=== PATIENT | male | born 1970 | race African-American/Black ===

== ENCOUNTER 2020-06-30 11:45 | Inpatient (IN) | payer BC ==
[~2020-06-30] VITALS: Ht 195.6 cm; Wt 118.5 kg
[2020-06-30 12:28] LABS: BASO # 0.1 x10^3/uL (0.0-0.2); BASO % 1 % (0-3); EOS # 0.1 x10^3/uL (0.0-0.7); EOS % 1 % (0-3); HEMATOCRIT 44.5 % (39.0-53.0); HEMOGLOBIN 14.4 g/dL (13.0-17.5); LYMPH # 1.7 x10^3/uL (1.0-4.8); LYMPH % 24 % (24-48); MEAN CORPUSCULAR HEMOGLOBIN 30 pg (25-35); MEAN CORPUSCULAR HGB CONC 32 g/dL (31-37); MEAN CORPUSCULAR VOLUME 93 fL (79-100); MONO # 0.6 x10^3/uL (0.0-1.1); MONO % 8 % (0-9); NEUT # 4.7 x10^3/uL (1.8-7.7); NEUT % 66 % (31-73); PLATELET COUNT 185 x10^3/uL (140-400); RED CELL DISTRIBUTION WIDTH 14.7 % (11.5-14.5); WHITE BLOOD COUNT 7.2 x10^3/uL (4.0-11.0)
[2020-06-30 12:35] LABS: CALCIUM 8.7 mg/dL (8.5-10.1); CREATININE 1.3 mg/dL (0.7-1.3); GFR 70.7; POTASSIUM 4.1 mmol/L (3.5-5.1)
[2020-06-30 12:41] LABS: ALBUMIN 2.5 g/dL (3.4-5.0); ALBUMIN/GLOBULIN RATIO 0.7 (1.0-1.7); TOTAL BILIRUBIN 1.5 mg/dL (0.2-1.0); TOTAL PROTEIN 5.9 g/dL (6.4-8.2)
[2020-06-30] MEDS ORDERED: IOHEXOL 240 MG/ML 50ML VIAL. PO ONE (13:00)
[2020-06-30] MEDS ORDERED: IOHEXOL 300 MG/ML 100ML VIAL. IV ONE (13:00)
--- NOTE | 2020-06-30 13:19 | ED.ADGEN ---
Past Medical History Past Medical History: Diabetes-Type II Past Surgical History: No Surgical History Smoking Status: Never Smoker Alcohol Use: Occasionally General Adult EDM: Chief Complaint: ABDOMINAL PAIN HPI: HPI: Patient is a 50-year-old male who presents to the emergency room complaining of abdominal discomfort, abdominal distention, difficulty with constipation. Patient states this this is been ongoing for the last couple of months and he tried to see his primary care physician for this but his concerns were not addressed. He states that he feels like his abdomen is hard all the time and he does not know the last time that he has had a normal bowel movement. He has gained weight but has a decreased appetite. He does have bilateral swelling in his legs which he attributes to working on his feet all day. Only history is diabetes which he has been taking his medications for. He denies any chest pa in, shortness of breath, URI symptoms, dysuria, difficulty with urination. He has had some intermittent nausea and has had one episode of vomiting. Review of Systems: Review of Systems: Complete ROS is negative unless otherwise documented in HPI Current Medications: Current Medications Medications (Trade) Dose Ordered Sig/Silverio Start Time Stop Time Status Last Admin Dose Admin Furosemide (Lasix) 40 mg 1X ONCE 06/30/20 15:00 06/30/20 15:01 DC 06/30/20 15:11 40 MG Iohexol (Omnipaque 240 Mg/ml) 30 ml 1X ONCE 06/30/20 13:00 06/30/20 13:03 DC 06/30/20 13:00 30 ML Iohexol (Omnipaque 300 Mg/ml) 75 ml 1X ONCE 06/30/20 13:00 06/30/20 13:03 DC 06/30/20 13:36 75 ML Allergies: Allergies: Allergies Coded Allergies Type Severity Reaction Last Updated Verified No Known Drug Allergies 06/30/20 No Physical Exam: PE: General: Awake, alert, NAD. Well Nourished, well hydrated. Cooperative HEENT: Atraumatic, EOMI, PERRL, airway patent, moist oral mucosa Neck: Supple, trachea midline Respiratory: CTA bilaterally, normal effort, no wheezing/crackles CV: RRR, no murmur, cap refill <2, 2+ pitting edema GI: Soft, distended, nontender MSK: No obvious deformities Skin: Warm, dry, intact Neuro: A&O x3, speech NL, sensory and motor grossly intact, no focal deficits Psych: Normal affect, normal mood, not suicidal or homicidal Current Patient Data: Labs: Laboratory Tests Test 06/30/20 12:15 06/30/20 13:20 White Blood Count 7.2 x10^3/uL (4.0-11.0) Red Blood Count 4.80 x10^6/uL (4.30-5.70) Hemoglobin 14.4 g/dL (13.0-17.5) Hematocrit 44.5 % (39.0-53.0) Mean Corpuscular Volume 93 fL (79-100) Mean Corpuscular Hemoglobin 30 pg (25-35) Mean Corpuscular Hemoglobin Concent 32 g/dL (31-37) Red Cell Distribution Width 14.7 % (11.5-14.5) H Platelet Count 185 x10^3/uL (140-400) Neutrophils (%) (Auto) 66 % (31-73) Lymphocytes (%) (Auto) 24 % (24-48) Monocytes (%) (Auto) 8 % (0-9) Eosinophils (%) (Auto) 1 % (0-3) Basophils (%) (Auto) 1 % (0-3) Neutrophils # (Auto) 4.7 x10^3/uL (1.8-7.7) Lymphocytes # (Auto) 1.7 x10^3/uL (1.0-4.8) Monocytes # (Auto) 0.6 x10^3/uL (0.0-1.1) Eosinophils # (Auto) 0.1 x10^3/uL (0.0-0.7) Basophils # (Auto) 0.1 x10^3/uL (0.0-0.2) Sodium Level 134 mmol/L (136-145) L Potassium Level 4.1 mmol/L (3.5-5.1) Chloride Level 100 mmol/L (98-107) Carbon Dioxide Level 27 mmol/L (21-32) Anion Gap 7 (6-14) Blood Urea Nitrogen 14 mg/dL (8-26) Creatinine 1.3 mg/dL (0.7-1.3) Estimated GFR (Cockcroft-Gault) 70.7 BUN/Creatinine Ratio 11 (6-20) Glucose Level 364 mg/dL (70-99) H Calcium Level 8.7 mg/dL (8.5-10.1) Total Bilirubin 1.5 mg/dL (0.2-1.0) H Aspartate Amino Transferase (AST) 33 U/L (15-37) Alanine Aminotransferase (ALT) 51 U/L (16-63) Alkaline Phosphatase 463 U/L (46-116) H ZK-Ypp-I-Type Natriuretic Peptide 3450 pg/mL (0-124) H Total Protein 5.9 g/dL (6.4-8.2) L Albumin 2.5 g/dL (3.4-5.0) L Albumin/Globulin Ratio 0.7 (1.0-1.7) L Lipase 111 U/L (73-393) Urine Collection Type Unknown Urine Color Mell Urine Clarity Clear Urine pH 6.0 (<5.0-8.0) Urine Specific [place] 1.020 (1.000-1.030) Urine Protein 100 mg/dL (NEG-TRACE) Urine Glucose (UA) >=1000 mg/dL (NEG) Urine Ketones (Stick) Negative mg/dL (NEG) Urine Blood Negative (NEG) Urine Nitrite Negative (NEG) Urine Bilirubin Small (NEG) Urine Urobilinogen Dipstick 1.0 mg/dL (0.2 mg/dL) Urine Leukocyte Esterase Negative (NEG) Urine RBC 0 /HPF (0-2) Urine WBC 20-40 /HPF (0-4) Urine Bacteria Many /HPF (0-FEW) Urine Hyaline Casts Moderate /HPF Urine Mucus Mod /LPF Laboratory Tests 06/30/20 12:15 Laboratory Tests 06/30/20 12:15 Vital Signs: Vital Signs Date Time Temp Pulse Resp B/P (MAP) Pulse Ox O2 Delivery O2 Flow Rate FiO2 06/30/20 14:47 90 113/78 (90) Room Air 06/30/20 13:40 20 98 06/30/20 11:57 98.6 98.6 EKG: EKG: [] Heart Score: Risk Factors: Risk Factors: DM, Current or recent (<one month) smoker, HTN, HLP, family history of CAD, obesity. Risk Scores: Score 0 - 3: 2.5% MACE over next 6 weeks - Discharge Home Score 4 - 6: 20.3% MACE over next 6 weeks - Admit for Clinical Observation Score 7 - 10: 72.7% MACE over next 6 weeks - Early Invasive Strategies Radiology/Procedures: Radiology/Procedures: [] Course & Med Decision Making: Course & Med Decision Making Pertinent Labs and Imaging studies reviewed. (See chart for details) Patient is a 50-year-old male who presents to the emergency room complaining of abdominal distention and discomfort that has been ongoing for last couple months. Patient does appear to have a distended abdomen and some pitting edema on exam. Abdominal lab work was ordered including a CBC, CMP, lipase, UA. CT abdomen pelvis was also ordered to evaluate for any kind of mass or obstruction. CT shows anasarca with pleural effusions and ascites. This is likely due to congestive heart failure. He does also have 2+ pitting edema. Lasix was started and a BNP was ordered which is elevated. Patient will be admitted for cardiology evaluation. Dragon Disclaimer: Dragon Disclaimer: This electronic medical record was generated, in whole or in part, using a voice recognition dictation system. Departure Departure Impression: Primary Impression: Abdominal pain Additional Impressions: New onset of congestive heart failure Anasarca Pleural effusion Disposition: ADMITTED INPT THIS HOSP Condition: STABLE Referrals: UNKNOWN PCP NAME (PCP) Problem Qualifiers DEVORAH CORBIN MD Jun 30, 2020 13:19
[2020-06-30 13:44] LABS: BILIRUBIN,URINE SMALL (NEG); CLARITY,URINE CLEAR; COLOR,URINE AMBER; NITRITE,URINE NEGATIVE (NEG); PROTEIN,URINE 100 mg/dL (NEG-TRACE)
[2020-06-30 13:54] LABS: HYALINE CASTS, URINE MODERATE /HPF
[2020-06-30 13:55] LABS: BACTERIA,URINE MANY /HPF (0-FEW); RBC,URINE 0 /HPF (0-2); WBC,URINE 20-40 /HPF (0-4)
--- NOTE | 2020-06-30 14:10 | RAD ---
EXAM: CT Abdomen and Pelvis with IV contrast INDICATION: Reason: abdominal pain, elderly / Spl. Instructions: INJ 75ML OMNI 300 30 ML OMNI 240 PO / History: TECHNIQUE: Multi-detector row CT images were acquired from the lung bases through the abdomen and pelvis with the use of IV contrast. Sagittal and coronal images were acquired from the transaxial data. All CT scans performed at this facility utilize dose optimization techniques as appropriate to the exam, including the following: Automated exposure control and adjustment of the mA and/or KV according to patient size (this includes techniques or standardized protocols for targeted exams where dose is indication/reason for exam). IV CONTRAST: Administered ORAL CONTRAST: Administered COMPARISON: None FINDINGS: LOWER CHEST: Right greater than left bilateral [id number]-wm-[id number] pleural effusions. Small pericardial effusion measuring up to 1.7 cm in maximum depth at the cardiac base. Borderline enlarged heart LIVER: Mildly enlarged. BILIARY SYSTEM: Layering density in the gallbladder suggesting sludge. Bile ducts are not dilated. 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 The right adrenal gland is mildly enlarged but mildly obscured by soft tissue stranding in the retroperitoneum. KIDNEYS & URETERS: Unremarkable BLADDER: Unremarkable REPRODUCTIVE ORGANS: Unremarkable GASTROINTESTINAL: The stomach, small bowel, and colon are unremarkable. The appendix is normal. MESENTERY/PERITONEUM/RETROPERITONEUM: Moderate ascites. No free air. Mild mesenteric and extraperitoneal soft tissue stranding. VASCULAR: Normal caliber and enhancement to the abdominal aorta and its major branch vessels. LYMPH NODES: No adenopathy OSSEOUS & SOFT TISSUES: Mild degenerative change of the lumbosacral junction. No acute or aggressive appearing osseous lesions. Generalized body wall edema. IMPRESSION: Findings suggesting heart failure with anasarca, ascites and pleural effusions. Otherwise no acute bowel pathology shown. Electronically signed by: Sunshine Self MD (06/30/2020 2:07 PM) [facility] [place]
[2020-06-30] MEDS ORDERED: FUROSEMIDE 40 MG/4 ML VIAL. IVP ONE (15:00)
[2020-06-30 15:55] VITALS: BP 140/93
--- NOTE | 2020-06-30 16:44 | PDOC1 ---
History and Physical Date of Admission Date of Admission DATE: 06/30/20 TIME: 16:44 Identification/Chief Complaint Chief Complaint seen in er with new onset chf, has noted more dyspnea at work x several day, has been eating high sodium foods 50-year-old male who presents to the emergency room complaining of abdominal discomfort, abdominal distention, difficulty with constipation. Patient states this this is been ongoing for the last couple of months and he tried to see his primary care physician for this but his concerns were not addressed. He states that he feels like his abdomen is hard all the time and he does not know the last time that he has had a normal bowel movement. He has gained weight but has a decreased appetite. He does have bilateral swelling in his legs which he attributes to working on his feet all day. Only history is diabetes which he has been taking his medications for. He denies any chest pain, shortness of breath, URI symptoms, dysuria, difficulty with urination. He has had some intermittent nausea and has had one episode of vomiting. 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 [employer], [place] Past Medical History Past Medical History Past Medical History Past Medical History: Diabetes-Type II Past Surgical History: No Surgical History Smoking Status: Never Smoker Alcohol Use: Occasionally Family History Family History: Alcohol Abuse, Hypertension Social History Smoke: No ALCOHOL: occassional (remote heavy use in college) Drugs: None Current Problem List Problem List Problems Medical Problems: (1) Abdominal pain Status: Acute (2) Anasarca Status: Acute (3) New onset of congestive heart failure Status: Acute (4) Pleural effusion Status: Acute Current Medications Current Medications Current Medications Iohexol (Omnipaque 240 Mg/ml) 30 ml 1X ONCE PO Last administered on 06/30/20at 13:00; Start 06/30/20 at 13:00; Stop 06/30/20 at 13:03; Status DC Iohexol (Omnipaque 300 Mg/ml) 75 ml 1X ONCE IV Last administered on 06/30/20at 13:36; Start 06/30/20 at 13:00; Stop 06/30/20 at 13:03; Status DC Furosemide (Lasix) 40 mg 1X ONCE IVP Last administered on 06/30/20at 15:11; Start 06/30/20 at 15:00; Stop 06/30/20 at 15:01; Status DC Allergies Allergies: Coded Allergies: No Known Drug Allergies (Unverified , 06/30/20) ROS General: YES: Fatigue PSYCHOLOGICAL ROS: No: Anxiety, Behavioral Disorder, Concentration difficultie, Decreased libido, Depression, Disorientation, Hallucinations, Hostility, Irritablity, Memory difficulties, Mood Swings, Obsessive thoughts, Physical abuse, Sexual abuse, Sleep disturbances, Suicidal ideation, Other Eyes: No Blurry vision, No Decreased vision, No Double vision, No Dry eyes, No Excessive tearing, No Eye Pain, No Itchy Eyes, No Loss of vision, No Photophobia, No Scotomata, No Uses contacts, No Uses glasses, No Other HEENT: No: Heacaches, Visual Changes, Hearing change, Nasal congestion, Nasal discharge, Oral lesions, Sinus pain, Sore Throat, Epistaxis, Sneezing, Snoring, Tinnitus, Vertigo, Vocal changes, Other ALLERGY AND IMMUNOLOGY: No: Hives, Insect Bite Sensitivity, Itchy/Watery Eyes, Nasal Congestion, Post Nasal Drip, Seasonal Allergies, Other Hematological and Lymphatic: No: Bleeding Problems, Blood Clots, Blood Transfusions, Brusing, Night Sweats, Pallor, Swollen Lymph Nodes, Other Respiratory: YES: Orthopnea, Shortness of breath, SOB with excertion; No: Cough, Hemoptysis, Pleuritic Pain, Sputum Changes, Stridor, Tachypnea, Wheezing, Other Cardiovascular: yes Edema; No Chest Pain, No Palpitations, No Orthopnea, No Paroxysmal Noc. Dyspnea, No Lt Headedness, No Other Gastrointestinal: No Nausea, No Vomiting, No Abdominal Pain, No Diarrhea, No Constipation, No Melena, No Hematochezia, No Other Genitourinary: No Dysuria, No Frequency, No Incontinence, No Hematuria, No Retention, No Discharge, No Urgency, No Pain, No Flank Pain, No Other, No , No , No , No , No , No , No Musculoskeletal: Yes Joint Stiffness; No Gait Disturbance, No Joint Pain, No Joint Swelling, No Muscle Pain, No Muscular Weakness, No Pain In:, No Swelling In:, No Other Neurological: No Behavorial Changes, No Bowel/Bladder ControlChng, No Confusion, No Dizziness, No Gait Disturbance, No Headaches, No Impaired Coord/balance, No Memory Loss, No Numbness/Tingling, No Seizures, No Speech Problems, No Tremors, No Visual Changes, No Weakness, No Other Skin: No Dry Skin, No Eczema, No Hair Changes, No Lumps, No Mole Changes, No Mo ttling, No Nail Changes, No Pruritus, No Rash, No Skin Lesion Changes, No Other, No Acne Physical Exam General: Alert, Oriented X3, Cooperative, No acute distress HEENT: Atraumatic, PERRLA Lungs: Clear to auscultation Heart: RRR, no thrills, no rubs, jugular vein distention Breasts: Not examined Abdomen: Normal bowel sounds, Soft Rectal Exam: not examined Extremities: No cyanosis, Other (edema) Neuro: Normal speech, Cranial nerves 3-12 NL Psych/Mental Status: Mental status NL, Mood NL Vitals Vitals Vital Signs Date Time Temp Pulse Resp B/P (MAP) Pulse Ox O2 Delivery O2 Flow Rate FiO2 06/30/20 15:55 97.9 95 18 140/93 (109) 96 Room Air 97.9 Labs Labs Laboratory Tests Test 06/30/20 12:15 06/30/20 13:20 White Blood Count 7.2 x10^3/uL (4.0-11.0) Red Blood Count 4.80 x10^6/uL (4.30-5.70) Hemoglobin 14.4 g/dL (13.0-17.5) Hematocrit 44.5 % (39.0-53.0) Mean Corpuscular Volume 93 fL (79-100) Mean Corpuscular Hemoglobin 30 pg (25-35) Mean Corpuscular Hemoglobin Concent 32 g/dL (31-37) Red Cell Distribution Width 14.7 % (11.5-14.5) Platelet Count 185 x10^3/uL (140-400) Neutrophils (%) (Auto) 66 % (31-73) Lymphocytes (%) (Auto) 24 % (24-48) Monocytes (%) (Auto) 8 % (0-9) Eosinophils (%) (Auto) 1 % (0-3) Basophils (%) (Auto) 1 % (0-3) Neutrophils # (Auto) 4.7 x10^3/uL (1.8-7.7) Lymphocytes # (Auto) 1.7 x10^3/uL (1.0-4.8) Monocytes # (Auto) 0.6 x10^3/uL (0.0-1.1) Eosinophils # (Auto) 0.1 x10^3/uL (0.0-0.7) Basophils # (Auto) 0.1 x10^3/uL (0.0-0.2) Sodium Level 134 mmol/L (136-145) Potassium Level 4.1 mmol/L (3.5-5.1) Chloride Level 100 mmol/L (98-107) Carbon Dioxide Level 27 mmol/L (21-32) Anion Gap 7 (6-14) Blood Urea Nitrogen 14 mg/dL (8-26) Creatinine 1.3 mg/dL (0.7-1.3) Estimated GFR (Cockcroft-Gault) 70.7 BUN/Creatinine Ratio 11 (6-20) Glucose Level 364 mg/dL (70-99) Calcium Level 8.7 mg/dL (8.5-10.1) Total Bilirubin 1.5 mg/dL (0.2-1.0) Aspartate Amino Transf (AST/SGOT) 33 U/L (15-37) Alanine Aminotransferase (ALT/SGPT) 51 U/L (16-63) Alkaline Phosphatase 463 U/L (46-116) QS-Qqj-N-Type Natriuretic Peptide 3450 pg/mL (0-124) Total Protein 5.9 g/dL (6.4-8.2) Albumin 2.5 g/dL (3.4-5.0) Albumin/Globulin Ratio 0.7 (1.0-1.7) Lipase 111 U/L (73-393) Urine Collection Type Unknown Urine Color Mell Urine Clarity Clear Urine pH 6.0 (<5.0-8.0) Urine Specific [place] 1.020 (1.000-1.030) Urine Protein 100 mg/dL (NEG-TRACE) Urine Glucose (UA) >=1000 mg/dL (NEG) Urine Ketones (Stick) Negative mg/dL (NEG) Urine Blood Negative (NEG) Urine Nitrite Negative (NEG) Urine Bilirubin Small (NEG) Urine Urobilinogen Dipstick 1.0 mg/dL (0.2 mg/dL) Urine Leukocyte Esterase Negative (NEG) Urine RBC 0 /HPF (0-2) Urine WBC 20-40 /HPF (0-4) Urine Bacteria Many /HPF (0-FEW) Urine Hyaline Casts Moderate /HPF Urine Mucus Mod /LPF Laboratory Tests Test 06/30/20 12:15 06/30/20 13:20 White Blood Count 7.2 x10^3/uL (4.0-11.0) Red Blood Count 4.80 x10^6/uL (4.30-5.70) Hemoglobin 14.4 g/dL (13.0-17.5) Hematocrit 44.5 % (39.0-53.0) Mean Corpuscular Volume 93 fL (79-100) Mean Corpuscular Hemoglobin 30 pg (25-35) Mean Corpuscular Hemoglobin Concent 32 g/dL (31-37) Red Cell Distribution Width 14.7 % (11.5-14.5) Platelet Count 185 x10^3/uL (140-400) Neutrophils (%) (Auto) 66 % (31-73) Lymphocytes (%) (Auto) 24 % (24-48) Monocytes (%) (Auto) 8 % (0-9) Eosinophils (%) (Auto) 1 % (0-3) Basophils (%) (Auto) 1 % (0-3) Neutrophils # (Auto) 4.7 x10^3/uL (1.8-7.7) Lymphocytes # (Auto) 1.7 x10^3/uL (1.0-4.8) Monocytes # (Auto) 0.6 x10^3/uL (0.0-1.1) Eosinophils # (Auto) 0.1 x10^3/uL (0.0-0.7) Basophils # (Auto) 0.1 x10^3/uL (0.0-0.2) Sodium Level 134 mmol/L (136-145) Potassium Level 4.1 mmol/L (3.5-5.1) Chloride Level 100 mmol/L (98-107) Carbon Dioxide Level 27 mmol/L (21-32) Anion Gap 7 (6-14) Blood Urea Nitrogen 14 mg/dL (8-26) Creatinine 1.3 mg/dL (0.7-1.3) Estimated GFR (Cockcroft-Gault) 70.7 BUN/Creatinine Ratio 11 (6-20) Glucose Level 364 mg/dL (70-99) Calcium Level 8.7 mg/dL (8.5-10.1) Total Bilirubin 1.5 mg/dL (0.2-1.0) Aspartate Amino Transf (AST/SGOT) 33 U/L (15-37) Alanine Aminotransferase (ALT/SGPT) 51 U/L (16-63) Alkaline Phosphatase 463 U/L (46-116) OL-Bmi-H-Type Natriuretic Peptide 3450 pg/mL (0-124) Total Protein 5.9 g/dL (6.4-8.2) Albumin 2.5 g/dL (3.4-5.0) Albumin/Globulin Ratio 0.7 (1.0-1.7) Lipase 111 U/L (73-393) Urine Collection Type Unknown Urine Color Mell Urine Clarity Clear Urine pH 6.0 (<5.0-8.0) Urine Specific [place] 1.020 (1.000-1.030) Urine Protein 100 mg/dL (NEG-TRACE) Urine Glucose (UA) >=1000 mg/dL (NEG) Urine Ketones (Stick) Negative mg/dL (NEG) Urine Blood Negative (NEG) Urine Nitrite Negative (NEG) Urine Bilirubin Small (NEG) Urine Urobilinogen Dipstick 1.0 mg/dL (0.2 mg/dL) Urine Leukocyte Esterase Negative (NEG) Urine RBC 0 /HPF (0-2) Urine WBC 20-40 /HPF (0-4) Urine Bacteria Many /HPF (0-FEW) Urine Hyaline Casts Moderate /HPF Urine Mucus Mod /LPF Images Images EXAM: CT Abdomen and Pelvis with IV contrast INDICATION: Reason: abdominal pain, elderly / Spl. Instructions: INJ 75ML OMNI 300 30 ML OMNI 240 PO / History: TECHNIQUE: Multi-detector row CT images were acquired from the lung bases through the abdomen and pelvis with the use of IV contrast. Sagittal and coronal images were acquired from the transaxial data. All CT scans performed at this facility utilize dose optimization techniques as appropriate to the exam, including the following: Automated exposure control and adjustment of the mA and/or KV according to patient size (this includes techniques or standardized protocols for targeted exams where dose is indication/reason for exam). IV CONTRAST: Administered ORAL CONTRAST: Administered COMPARISON: None FINDINGS: LOWER CHEST: Right greater than left bilateral [id number] pleural effusions. Small pericardial effusion measuring up to 1.7 cm in maximum depth at the cardiac base. Borderline enlarged heart LIVER: Mildly enlarged. BILIARY SYSTEM: Layering density in the gallbladder suggesting sludge. Bile ducts are not dilated. 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 The right adrenal gland is mildly enlarged but mildly obscured by soft tissue stranding in the retroperitoneum. KIDNEYS & URETERS: Unremarkable BLADDER: Unremarkable REPRODUCTIVE ORGANS: Unremarkable GASTROINTESTINAL: The stomach, small bowel, and colon are unremarkable. The appendix is normal. MESENTERY/PERITONEUM/RETROPERITONEUM: Moderate ascites. No free air. Mild mesenteric and extraperitoneal soft tissue stranding. VASCULAR: Normal caliber and enhancement to the abdominal aorta and its major branch vessels. LYMPH NODES: No adenopathy OSSEOUS & SOFT TISSUES: Mild degenerative change of the lumbosacral junction. No acute or aggressive appearing osseous lesions. Generalized body wall edema. IMPRESSION: Findings suggesting heart failure with anasarca, ascites and pleural effusions. Otherwise no acute bowel pathology shown. Electronically signed by: Ghislaine Self MD (06/30/2020 2:07 PM) [facility] [place] S[place] BY: GHISLAINE SELF MD DATE: 06/30/20 1407 VTE Prophylaxis Ordered VTE Prophylaxis Devices: No VTE Pharmacological Prophylaxi: Yes Assessment/Plan Assessment/Plan IMPRESSION: ACUTE Congestive heart failure anasarca, ascites DIABETES pleural effusions Right greater than left bilateral [id number] pleural effusions. Small pericardial effusion measuring up to 1.7 cm in maximum depth at the cardiac base. ELEVATED TSH Minimum troponin i elevation, suspect acute myocardial strain type 2 ischemia plan admit cvc bed iv lasix BID 40 MG cardiology consult TSH ECHO troponin i, serial urine drug screen accurate I/O'S DVT PROPHYLAXIS accuchecks A1C D/W ER DR 76 min pt exam, chart review, > 50% of time spent with exam, chart review, pt care coordination Justifications for Admission Other Justification SAUMYA BLANCHARD MD Jun 30, 2020 16:44
[2020-06-30] MEDS ORDERED: ONDANSETRON PF 4 MG/2 ML VIAL. IV PRN (17:00)
[2020-06-30] MEDS ORDERED: ALBUTEROL SULFATE 2.5 MG/3 ML NEBU. NEB PRN (17:00)
[2020-06-30] MEDS ORDERED: SODIUM PHOSPHATES 19/7GM 133 ML ENEMA. PR PRN (17:00)
[2020-06-30] MEDS ORDERED: ACETAMINOPHEN 325 MG TABLET. PO PRN (17:00)
[2020-06-30] MEDS ORDERED: guaiFENesin ORAL 200 MG/10 ML LIQUID. PO PRN (17:00)
[2020-06-30] MEDS ORDERED: DOCUSATE SODIUM 100 MG CAPSULE. PO PRN (17:00)
[2020-06-30] MEDS ORDERED: 0.9 % SODIUM CHLORIDE 10 ML DISP.SYRIN. IV PRN (17:00)
[2020-06-30 17:21] LABS: FREE T4 1.3 ng/dL (0.76-1.46); THYROID STIM HORMONE (TSH) 4.837 uIU/mL (0.358-3.74)
[2020-06-30] MEDS ORDERED: DEXTROSE 50% 25 GM / 50ML DISP.SYRIN. IV PRN ×2 (17:30→22:15)
[2020-06-30] MEDS: INSULIN LISPRO 300 UNITS/3 ML VIAL. SQ SCH (17:36)
[2020-06-30] MEDS: ENOXAPARIN 40 MG/0.4 ML SYRINGE. SQ SCH (17:38)
[2020-06-30 19:53] VITALS: BP 130/88
[2020-06-30 23:06] VITALS: BP 117/84
[2020-07-01] VITALS (17 sets, daily range): BP systolic 110–146; BP diastolic 79–101
--- NOTE | 2020-07-01 00:09 | RAD ---
EXAM: CHEST 2 VIEWS. HISTORY: Congestive heart failure. COMPARISON: 09/11/2005. FINDINGS: Frontal and lateral views of the chest are obtained. There are small bilateral pleural effusions. Mild perihilar opacities are consistent with mild pulmonary edema. There is no pneumothorax or pleural effusion. The heart is mildly enlarged. IMPRESSION: 1. Mild pulmonary edema. Small bilateral pleural effusions. Mild cardiomegaly. Electronically signed by: Selena Xiong MD (07/01/2020 12:06 AM) [facility], [place]
[2020-07-01 04:43] LABS: BASO # 0.1 x10^3/uL (0.0-0.2); BASO % 1 % (0-3); EOS # 0.1 x10^3/uL (0.0-0.7); EOS % 2 % (0-3); HEMATOCRIT 43.2 % (39.0-53.0); HEMOGLOBIN 14.2 g/dL (13.0-17.5); LYMPH # 1.9 x10^3/uL (1.0-4.8); LYMPH % 26 % (24-48); MEAN CORPUSCULAR HEMOGLOBIN 30 pg (25-35); MEAN CORPUSCULAR HGB CONC 33 g/dL (31-37); MEAN CORPUSCULAR VOLUME 92 fL (79-100); MONO # 0.6 x10^3/uL (0.0-1.1); MONO % 8 % (0-9); NEUT # 4.8 x10^3/uL (1.8-7.7); NEUT % 64 % (31-73); PLATELET COUNT 173 x10^3/uL (140-400); RED BLOOD COUNT 4.68 x10^6/uL (4.30-5.70); RED CELL DISTRIBUTION WIDTH 14.1 % (11.5-14.5); WHITE BLOOD COUNT 7.5 x10^3/uL (4.0-11.0)
[2020-07-01 05:24] LABS: CALCIUM 8.2 mg/dL (8.5-10.1); CREATININE 1.3 mg/dL (0.7-1.3); GFR 70.7; POTASSIUM 4.4 mmol/L (3.5-5.1)
[2020-07-01] MEDS ORDERED: INSULIN LISPRO 300 UNITS/3 ML VIAL. SQ SCH ×2 (08:00)
--- NOTE | 2020-07-01 08:55 | EKG ---
[facility] [address] [place] [address] Test Date: 2020-07-01 Test Time: 08:51:43 Pat Name: EVONNE DIAZ Department: Room: 211 1 Gender: M [employer]: PAM : 1970 Requested By: MARY PRECIADO Order Number: [id number] Reading MD: Measurements Intervals [place] Rate: 91 P: 47 MA: 182 QRS: 129 QRSD: 88 T: 19 QT: 376 QTc: 464 Interpretive Statements SINUS RHYTHM LOW LIMB LEAD VOLTAGE QRS(T) CONTOUR ABNORMALITY CONSISTENT WITH HIGH LATERAL INFARCT AGE UNDETERMINED ABNORMAL ECG RI6.02 No previous ECG available for comparison
[2020-07-01] MEDS: FUROSEMIDE 40 MG/4 ML VIAL. IVP SCH ×2 (10:18→15:25)
[2020-07-01] MEDS: INSULIN LISPRO 300 UNITS/3 ML VIAL. SQ SCH ×3 (10:29→17:53)
--- NOTE | 2020-07-01 10:31 | PDOC ---
[employer] PROGRESS NOTE Date of Service DOS: DATE: 07/01/20 TIME: 10:26 Chief Complaint Chief Complaint New onset CHF Dyspnea Diabetes Type 2 Abdominal pain Ansasarca Ascites pleural effusion History of Present Illness History of Present Illness seen in er with new onset chf, has noted more dyspnea at work x several day, has been eating high sodium foods 50-year-old male who presents to the emergency room complaining of abdominal discomfort, abdominal distention, difficulty with constipation. Patient states this this is been ongoing for the last couple of months and he tried to see his primary care physician for this but his concerns were not addressed. He states that he feels like his abdomen is hard all the time and he does not know the last time that he has had a normal bowel movement. He has gained weight but has a decreased appetite. He does have bilateral swelling in his legs which he attributes to working on his feet all day. Only history is diabetes which he has been taking his medications for. He denies any chest pain, shortness of breath, URI symptoms, dysuria, difficulty with urination. He has had some intermittent nausea and has had one episode of vomiting. Works for [employer] 07/01 Pt seen and examined. DW RN and DW case management. Pt denies SOA and denies chest pain. Abdominal discomfort and pain is no longer present. Vitals/I&O Vitals/I&O: Vital Signs Date Time Temp Pulse Resp B/P (MAP) Pulse Ox O2 Delivery O2 Flow Rate FiO2 07/01/20 07:32 97.9 87 16 146/88 (107) 99 Room Air 97.9 I & O 06/30/20 06/30/20 07/01/20 15:00 23:00 07:00 Intake Total 720 ml Output Total 100 ml 1430 ml 1200 ml Balance -100 ml -710 ml -1200 ml Physical Exam General: Alert, Oriented X3, Cooperative, No acute distress Abdomen: Normal bowel sounds, Soft Extremities: No cyanosis, Other (edema) Labs Labs: Laboratory Tests Test 06/30/20 12:15 06/30/20 13:20 06/30/20 17:10 06/30/20 20:29 White Blood Count 7.2 x10^3/uL (4.0-11.0) Red Blood Count 4.80 x10^6/uL (4.30-5.70) Hemoglobin 14.4 g/dL (13.0-17.5) Hematocrit 44.5 % (39.0-53.0) Mean Corpuscular Volume 93 fL (79-100) Mean Corpuscular Hemoglobin 30 pg (25-35) Mean Corpuscular Hemoglobin Concent 32 g/dL (31-37) Red Cell Distribution Width 14.7 % (11.5-14.5) Platelet Count 185 x10^3/uL (140-400) Neutrophils (%) (Auto) 66 % (31-73) Lymphocytes (%) (Auto) 24 % (24-48) Monocytes (%) (Auto) 8 % (0-9) Eosinophils (%) (Auto) 1 % (0-3) Basophils (%) (Auto) 1 % (0-3) Neutrophils # (Auto) 4.7 x10^3/uL (1.8-7.7) Lymphocytes # (Auto) 1.7 x10^3/uL (1.0-4.8) Monocytes # (Auto) 0.6 x10^3/uL (0.0-1.1) Eosinophils # (Auto) 0.1 x10^3/uL (0.0-0.7) Basophils # (Auto) 0.1 x10^3/uL (0.0-0.2) Sodium Level 134 mmol/L (136-145) Potassium Level 4.1 mmol/L (3.5-5.1) Chloride Level 100 mmol/L (98-107) Carbon Dioxide Level 27 mmol/L (21-32) Anion Gap 7 (6-14) Blood Urea Nitrogen 14 mg/dL (8-26) Creatinine 1.3 mg/dL (0.7-1.3) Estimated GFR (Cockcroft-Gault) 70.7 BUN/Creatinine Ratio 11 (6-20) Glucose Level 364 mg/dL (70-99) Calcium Level 8.7 mg/dL (8.5-10.1) Total Bilirubin 1.5 mg/dL (0.2-1.0) Aspartate Amino Transf (AST/SGOT) 33 U/L (15-37) Alanine Aminotransferase (ALT/SGPT) 51 U/L (16-63) Alkaline Phosphatase 463 U/L (46-116) Troponin I Quantitative 0.085 ng/mL (0.000-0.055) YK-Eks-U-Type Natriuretic Peptide 3450 pg/mL (0-124) Total Protein 5.9 g/dL (6.4-8.2) Albumin 2.5 g/dL (3.4-5.0) Albumin/Globulin Ratio 0.7 (1.0-1.7) Lipase 111 U/L (73-393) Thyroid Stimulating Hormone (TSH) 4.837 uIU/mL (0.358-3.74) Free Thyroxine 1.30 ng/dL (0.76-1.46) Urine Collection Type Unknown Urine Color Mell Urine Clarity Clear Urine pH 6.0 (<5.0-8.0) Urine Specific [place] 1.020 (1.000-1.030) Urine Protein 100 mg/dL (NEG-TRACE) Urine Glucose (UA) >=1000 mg/dL (NEG) Urine Ketones (Stick) Negative mg/dL (NEG) Urine Blood Negative (NEG) Urine Nitrite Negative (NEG) Urine Bilirubin Small (NEG) Urine Urobilinogen Dipstick 1.0 mg/dL (0.2 mg/dL) Urine Leukocyte Esterase Negative (NEG) Urine RBC 0 /HPF (0-2) Urine WBC 20-40 /HPF (0-4) Urine Bacteria Many /HPF (0-FEW) Urine Hyaline Casts Moderate /HPF Urine Mucus Mod /LPF Glucose (Fingerstick) 372 mg/dL (70-99) 194 mg/dL (70-99) Test 07/01/20 04:00 07/01/20 07:21 White Blood Count 7.5 x10^3/uL (4.0-11.0) Red Blood Count 4.68 x10^6/uL (4.30-5.70) Hemoglobin 14.2 g/dL (13.0-17.5) Hematocrit 43.2 % (39.0-53.0) Mean Corpuscular Volume 92 fL (79-100) Mean Corpuscular Hemoglobin 30 pg (25-35) Mean Corpuscular Hemoglobin Concent 33 g/dL (31-37) Red Cell Distribution Width 14.1 % (11.5-14.5) Platelet Count 173 x10^3/uL (140-400) Neutrophils (%) (Auto) 64 % (31-73) Lymphocytes (%) (Auto) 26 % (24-48) Monocytes (%) (Auto) 8 % (0-9) Eosinophils (%) (Auto) 2 % (0-3) Basophils (%) (Auto) 1 % (0-3) Neutrophils # (Auto) 4.8 x10^3/uL (1.8-7.7) Lymphocytes # (Auto) 1.9 x10^3/uL (1.0-4.8) Monocytes # (Auto) 0.6 x10^3/uL (0.0-1.1) Eosinophils # (Auto) 0.1 x10^3/uL (0.0-0.7) Basophils # (Auto) 0.1 x10^3/uL (0.0-0.2) Sodium Level 136 mmol/L (136-145) Potassium Level 4.4 mmol/L (3.5-5.1) Chloride Level 102 mmol/L (98-107) Carbon Dioxide Level 24 mmol/L (21-32) Anion Gap 10 (6-14) Blood Urea Nitrogen 18 mg/dL (8-26) Creatinine 1.3 mg/dL (0.7-1.3) Estimated GFR (Cockcroft-Gault) 70.7 Glucose Level 239 mg/dL (70-99) Calcium Level 8.2 mg/dL (8.5-10.1) Troponin I Quantitative 0.076 ng/mL (0.000-0.055) Triglycerides Level 73 mg/dL (0-150) Cholesterol Level 112 mg/dL (0-200) LDL Cholesterol, Calculated 60 mg/dL (0-100) VLDL Cholesterol, Calculated 15 mg/dL (0-40) Non-HDL Cholesterol Calculated 75 mg/dL (0-129) HDL Cholesterol 37 mg/dL (40-60) Cholesterol/HDL Ratio 3.0 Glucose (Fingerstick) 255 mg/dL (70-99) Review of Systems Review of Systems: No headaches. No leg pain b/l. No abdominal pain. Assessment and Plan Assessmemt and Plan Problems Medical Problems: (1) Abdominal pain Status: Acute (2) Anasarca Status: Acute (3) New onset of congestive heart failure Status: Acute (4) Pleural effusion Status: Acute New onset CHF Dyspnea Diabetes Type 2 Abdominal pain Ansasarca Ascites pleural effusion Plan: Cardiac Monitoring Pt/OT Continue Home meds Full Code Discharge disposition pending Pt needs to be seen by cardiology before discharge Comment Review of Relevant I have reviewed the following items tory (where applicable) has been applied. Medications: Current Medications Medications (Trade) Dose Ordered Sig/Silverio Route PRN Reason Start Time Stop Time Status Last Admin Dose Admin Iohexol (Omnipaque 240 Mg/ml) 30 ml 1X ONCE PO 06/30/20 13:00 06/30/20 13:03 DC 06/30/20 13:00 Iohexol (Omnipaque 300 Mg/ml) 75 ml 1X ONCE IV 06/30/20 13:00 06/30/20 13:03 DC 06/30/20 13:36 Furosemide (Lasix) 40 mg 1X ONCE IVP 06/30/20 15:00 06/30/20 15:01 DC 06/30/20 15:11 Enoxaparin Sodium (Lovenox 40mg Syringe) 40 mg Q24H SQ 06/30/20 18:00 06/30/20 17:38 Insulin Human Lispro (HumaLOG) 0-7 UNITS TIDWMEALS SQ 06/30/20 17:30 06/30/20 17:36 Justifications for Admission Other Justification CAMILLA CLAY III DO Jul 01, 2020 10:31
--- NOTE | 2020-07-01 11:50 | PDOC2 ---
MARY PRECIADO [employer] TRAINING TEACH[employer] 07/01/20 1150: CARDIAC CONSULT DATE OF CONSULT Date of Consult DATE: 07/01/20 TIME: 11:17 REASON FOR CONSULT Reason for Consult: New onset CHF REFERRING PHYSICIAN Referring Physician: Solomon SOURCE Source: Chart review, Patient HISTORY OF PRESENT ILLNESS HISTORY OF PRESENT ILLNESS This is a pleasant 50 yo male admitted for complains of body swelling and abdominal pain. Reports no significant SOA or chest pain but positive for orthopnea. Does have tightening around his waist and bloated. Denies any fatigue nausea or vomiting. and no family hx of heart disease. Reports that he has been getting more swollen in the last 2 months. OCcasionally he has palpitations., He has been diabetic in the last 6 yrs and only has been taking metformin and his BG runs in the 200s when he checks it. He went ot his PCP yesterday and told him to come to the hospital. He was started on HCTZ due to his swelling. No recent falls or injury. No hx of CAD, VTE or arrhythmias. PAST MEDICAL HISTORY Past Medical History DM2 PAST SURGICAL HISTORY Past Surgical History: No pertinent history FAMILY HISTORY Family History noncontributory SOCIAL HISTORY Smoke: No ALCOHOL: none Drugs: None Lives: with Family CURRENT MEDICATIONS CURRENT MEDICATIONS Current Medications Medications (Trade) Dose Ordered Sig/Silverio Route PRN Reason Start Time Stop Time Status Last Admin Dose Admin Iohexol (Omnipaque 240 Mg/ml) 30 ml 1X ONCE PO 06/30/20 13:00 06/30/20 13:03 DC 06/30/20 13:00 Iohexol (Omnipaque 300 Mg/ml) 75 ml 1X ONCE IV 06/30/20 13:00 06/30/20 13:03 DC 06/30/20 13:36 Furosemide (Lasix) 40 mg 1X ONCE IVP 06/30/20 15:00 06/30/20 15:01 DC 06/30/20 15:11 Enoxaparin Sodium (Lovenox 40mg Syringe) 40 mg Q24H SQ 06/30/20 18:00 06/30/20 17:38 Insulin Human Lispro (HumaLOG) 0-7 UNITS TIDWMEALS SQ 06/30/20 17:30 07/01/20 10:29 Furosemide (Lasix) 40 mg BID92 IVP 07/01/20 09:00 07/01/20 10:18 ALLERGIES ALLERGIES: Coded Allergies: No Known Drug Allergies (Unverified , 06/30/20) ROS Review of System 14 point ROS evaluated with pertinent positives noted per HPI PHYSICAL EXAM General: Alert, Oriented X3, Cooperative, No acute distress HEENT: Atraumatic, Mucous membr. moist/pink Lungs: Other (basilra crackles) Heart: Regular rate (SR), Other (distant heart sounds) Extremities: No cyanosis, Other (1-2+ bilateral LE pitting edema) Skin: No significant lesion Neuro: Normal speech, Sensation intact Psych/Mental Status: Mental status NL, Mood NL MUSCULOSKELETAL: Osteoarthritic changes both hands VITALS/I&O VITALS/I&O: Vital Signs Date Time Temp Pulse Resp B/P (MAP) Pulse Ox O2 Delivery O2 Flow Rate FiO2 07/01/20 10:43 98.0 92 16 142/91 (108) 96 Room Air 98.0 I & O 06/30/20 06/30/20 07/01/20 15:00 23:00 07:00 Intake Total 720 ml Output Total 100 ml 1430 ml 1200 ml Balance -100 ml -710 ml -1200 ml LABS Lab: Laboratory Tests Test 06/30/20 12:15 06/30/20 13:20 06/30/20 17:10 06/30/20 20:29 White Blood Count 7.2 x10^3/uL (4.0-11.0) Red Blood Count 4.80 x10^6/uL (4.30-5.70) Hemoglobin 14.4 g/dL (13.0-17.5) Hematocrit 44.5 % (39.0-53.0) Mean Corpuscular Volume 93 fL (79-100) Mean Corpuscular Hemoglobin 30 pg (25-35) Mean Corpuscular Hemoglobin Concent 32 g/dL (31-37) Red Cell Distribution Width 14.7 % (11.5-14.5) H Platelet Count 185 x10^3/uL (140-400) Neutrophils (%) (Auto) 66 % (31-73) Lymphocytes (%) (Auto) 24 % (24-48) Monocytes (%) (Auto) 8 % (0-9) Eosinophils (%) (Auto) 1 % (0-3) Basophils (%) (Auto) 1 % (0-3) Neutrophils # (Auto) 4.7 x10^3/uL (1.8-7.7) Lymphocytes # (Auto) 1.7 x10^3/uL (1.0-4.8) Monocytes # (Auto) 0.6 x10^3/uL (0.0-1.1) Eosinophils # (Auto) 0.1 x10^3/uL (0.0-0.7) Basophils # (Auto) 0.1 x10^3/uL (0.0-0.2) Sodium Level 134 mmol/L (136-145) L Potassium Level 4.1 mmol/L (3.5-5.1) Chloride Level 100 mmol/L (98-107) Carbon Dioxide Level 27 mmol/L (21-32) Anion Gap 7 (6-14) Blood Urea Nitrogen 14 mg/dL (8-26) Creatinine 1.3 mg/dL (0.7-1.3) Estimated GFR (Cockcroft-Gault) 70.7 BUN/Creatinine Ratio 11 (6-20) Glucose Level 364 mg/dL (70-99) H Calcium Level 8.7 mg/dL (8.5-10.1) Total Bilirubin 1.5 mg/dL (0.2-1.0) H Aspartate Amino Transferase (AST) 33 U/L (15-37) Alanine Aminotransferase (ALT) 51 U/L (16-63) Alkaline Phosphatase 463 U/L (46-116) H Troponin I Quantitative 0.085 ng/mL (0.000-0.055) UV-Oav-B-Type Natriuretic Peptide 3450 pg/mL (0-124) H Total Protein 5.9 g/dL (6.4-8.2) L Albumin 2.5 g/dL (3.4-5.0) L Albumin/Globulin Ratio 0.7 (1.0-1.7) L Lipase 111 U/L (73-393) Thyroid Stimulating Hormone (TSH) 4.837 uIU/mL (0.358-3.74) H Free Thyroxine 1.30 ng/dL (0.76-1.46) Urine Collection Type Unknown Urine Color Mell Urine Clarity Clear Urine pH 6.0 (<5.0-8.0) Urine Specific [place] 1.020 (1.000-1.030) Urine Protein 100 mg/dL (NEG-TRACE) Urine Glucose (UA) >=1000 mg/dL (NEG) Urine Ketones (Stick) Negative mg/dL (NEG) Urine Blood Negative (NEG) Urine Nitrite Negative (NEG) Urine Bilirubin Small (NEG) Urine Urobilinogen Dipstick 1.0 mg/dL (0.2 mg/dL) Urine Leukocyte Esterase Negative (NEG) Urine RBC 0 /HPF (0-2) Urine WBC 20-40 /HPF (0-4) Urine Bacteria Many /HPF (0-FEW) Urine Hyaline Casts Moderate /HPF Urine Mucus Mod /LPF Glucose (Fingerstick) 372 mg/dL (70-99) H 194 mg/dL (70-99) H Test 07/01/20 04:00 07/01/20 07:21 White Blood Count 7.5 x10^3/uL (4.0-11.0) Red Blood Count 4.68 x10^6/uL (4.30-5.70) Hemoglobin 14.2 g/dL (13.0-17.5) Hematocrit 43.2 % (39.0-53.0) Mean Corpuscular Volume 92 fL (79-100) Mean Corpuscular Hemoglobin 30 pg (25-35) Mean Corpuscular Hemoglobin Concent 33 g/dL (31-37) Red Cell Distribution Width 14.1 % (11.5-14.5) Platelet Count 173 x10^3/uL (140-400) Neutrophils (%) (Auto) 64 % (31-73) Lymphocytes (%) (Auto) 26 % (24-48) Monocytes (%) (Auto) 8 % (0-9) Eosinophils (%) (Auto) 2 % (0-3) Basophils (%) (Auto) 1 % (0-3) Neutrophils # (Auto) 4.8 x10^3/uL (1.8-7.7) Lymphocytes # (Auto) 1.9 x10^3/uL (1.0-4.8) Monocytes # (Auto) 0.6 x10^3/uL (0.0-1.1) Eosinophils # (Auto) 0.1 x10^3/uL (0.0-0.7) Basophils # (Auto) 0.1 x10^3/uL (0.0-0.2) Sodium Level 136 mmol/L (136-145) Potassium Level 4.4 mmol/L (3.5-5.1) Chloride Level 102 mmol/L (98-107) Carbon Dioxide Level 24 mmol/L (21-32) Anion Gap 10 (6-14) Blood Urea Nitrogen 18 mg/dL (8-26) Creatinine 1.3 mg/dL (0.7-1.3) Estimated GFR (Cockcroft-Gault) 70.7 Glucose Level 239 mg/dL (70-99) H Calcium Level 8.2 mg/dL (8.5-10.1) L Troponin I Quantitative 0.076 ng/mL (0.000-0.055) Triglycerides Level 73 mg/dL (0-150) Cholesterol Level 112 mg/dL (0-200) LDL Cholesterol, Calculated 60 mg/dL (0-100) VLDL Cholesterol, Calculated 15 mg/dL (0-40) Non-HDL Cholesterol Calculated 75 mg/dL (0-129) HDL Cholesterol 37 mg/dL (40-60) L Cholesterol/HDL Ratio 3.0 Glucose (Fingerstick) 255 mg/dL (70-99) H Laboratory Tests 06/30/20 12:15 07/01/20 04:00 Laboratory Tests 06/30/20 12:15 07/01/20 04:00 ASSESSMENT/PLAN ASSESSMENT/PLAN 1. Acute likely on chronic diastolic/systolic CHF 2. Mild troponin elevation: due to above and severe cardiomyopathy 3. Anasarca 4. Severe CM: EF prelimn 10-15% 5. DM2: uncontrolled 6. +Phenycyclidine per UDS, uses it twice a week Recommendations 1. Lasix therapy. ASA 2. HF optimization pending [facility] findings 3. Lifevest upon DC 4. [facility] today to further delineate any ischemic etiology, risks and benefits discussed and agreeable to proceed 5. TSH, lipids, A1C YAMILET AGEE MD 07/01/20 3505: CARDIAC CONSULT ASSESSMENT/PLAN ASSESSMENT/PLAN Patient seen and examined. Agree with [employer]'s assessment and plan. Continue diuresis for acute on chronic systolic heart failure. 2D echo showed LVEF 10 to 15%. Agree with cardiac catheterization to rule out ischemic etiology. Start BB, ARB, spironolactone to optimize therapy. We will change ARB to Entresto as an outpatient. Plan for LifeVest upon DC and repeat 2D echo in 3 months to evaluate the need for AICD implantation Thank you for your consultation. MARY PRECIADO APRN Jul 01, 2020 11:50 YAMILET AGEE MD Jul 01, 2020 13:19
[2020-07-01] MEDS ORDERED: LIDOCAINE 1% PF 2 ML VIAL. ONE (11:55)
[2020-07-01] MEDS ORDERED: IODIXANOL 320 MG/ML 100 ML VIAL. ONE (11:55)
[2020-07-01 12:19] LABS: BARBITURATES NEG (NEG); BENZODIAZEPINES NEG (NEG); CANNABINOIDS NEG (NEG); COCAINE NEG (NEG); METHADONE NEG (NEG); OPIATES NEG (NEG); PHENCYCLIDINE POS (NEG)
[2020-07-01 12:20] LABS: AMPHETAMINE/METHAMPHETAMINE NEG (NEG)
[2020-07-01] MEDS ORDERED: fentaNYL PF VIAL 100 MCG/2 ML VIAL ONE (12:43)
[2020-07-01] MEDS ORDERED: MIDAZOLAM HCL/PF 2 MG/2 ML VIAL. ONE (12:43)
--- NOTE | 2020-07-01 12:43 | NUR ---
SS following for discharge planning. SS reviewed pt chart and discussed with pt RN. Pt is from home and is currently on room air. Cardiology following. COVID19 pending. Pt had ECHO today and had EF of 10%. Pt having heart cath today. SS will continue to follow for discharge planning.
[2020-07-01] MEDS ORDERED: LIDOCAINE 1% Multi-Dose 20 ML VIAL. ONE (12:52)
--- NOTE | 2020-07-01 12:58 | PDOC ---
MODERATE SEDATION ASSESSMENT RISKS/ALTERNATIVES Risks/Alternatives Risks and alternatives of this type of sedation and procedure discussed with: RISK/ALTERNATIVES: Patient H & P ON CHART H & P H & P on chart and reviewed for co-morbid conditions and appropriate labs. H&P ON CHART: Yes STATUS PREG STATUS ASSESSED: N/A MEDS/ALLERGIES REVIEWED Meds/Allergies Reviewed Medications and Allergies including time and route of recently administered narcotics and sedatives. MEDS/ALLERGIES REVIEWED: Yes ASA RATING ASA RATING: II AIRWAY ASSESSMENT Airway Assessment Airway patency, oral function limitations, presence of caps, crowns, dentures, partials, and ability to extend neck assessed. AIRWAY ASSESSMENT: Yes MALLAMPATI SCORE MALLAMPATI SCORE: II PRE-SEDATION ASSESSMENT PRE-SEDATION ASSESSMENT: Yes YAMILET AGEE MD Jul 01, 2020 12:58
[2020-07-01] MEDS ORDERED: MIDAZOLAM HCL/PF 2 MG/2 ML VIAL. IV ONE (13:15)
[2020-07-01] MEDS ORDERED: IODIXANOL 320 MG/ML 100 ML VIAL. IART ONE (13:15)
[2020-07-01] MEDS ORDERED: LIDOCAINE 1% Multi-Dose 20 ML VIAL. INJ ONE (13:15)
[2020-07-01] MEDS ORDERED: fentaNYL PF VIAL 100 MCG/2 ML VIAL IV ONE (13:15)
--- NOTE | 2020-07-01 13:26 | CARD ---
MR#: [id number] Date of Study: 07/01/2020 Ordering Physician: YAMILET MENDOZA, Referring Physician: YAMILET MENDOZA Tech: Yaima Diaz APPROVED REPORT Technologist: Yaima Diaz Nurse: Alayna Bradshaw R.N. Procedure(s) performed: Left heart catheterization, selective coronary angiography heart failure class 4 fl time: 1.6 min dose: 56 gycm2 contrast: 92 ml moderate sedation: 22 MINS INDICATION The indication(s) include : Acute on chronic systolic heart failure, severe cardiomyopathy with EF 15 %. [facility] Clinical Frailty Scale [facility] Clinical Frailty Scale: Managing Well Heart Failure Heart Failure: Yes If Yes, Newly Diagnosed: Yes If Yes, HF Type: Systolic PROCEDURE NARRATIVE After explaining the risks, benefits and alternative options, informed consent was obtained from mireya ent. Patient was brought to the cardiac Recruiting Administrator and his right groin was prepped and draped in the u sual fashion. 20 cc of 2% lidocaine was infiltrated into the skin and subcutaneous tissues for local anesthesia. Arterial access was obtained in the right common femoral artery and a 6 [place] sheath w as inserted. 6 [place] JL4 and 6 [place] JR4 catheters were used to perform selective angiography of t he left and right coronary arteries. LVEDP and transaortic gradients were measured. Left ventriculo graphy was not performed due to elevated EDP and availability of recent 2D echo. Patient tolerated t he procedure well. Hemostasis was achieved using Angio-Seal. There were no immediate complications. The following findings were noted. FINDINGS 1. Hemodynamics: Elevated left ventricular end-diastolic pressure of 32 mmHg consistent with acute o n chronic systolic heart failure. No pullback gradient across the aortic valve. 2. Coronary angiography: a. The left main coronary artery arose from the left sinus of Valsalva, gave rise to the left anteri or descending and left circumflex arteries and did not show any significant stenosis. b. The left anterior descending artery did not show any significant stenosis. c. The left circumflex artery did not show any significant stenosis. d. The right coronary artery was a dominant vessel arising from the right sinus of Valsalva that did not show any significant stenosis. Conclusion 1. No significant coronary artery disease 2. Elevated LVEDP consistent with acute on chronic systolic heart failure Recommendations Optimization of medical therapy for severe nonischemic cardiomyopathy. Consider LifeVest upon discharge. Repeat 2D echo in 3 months to evaluate the need for AICD implantation. Signed by : Yamilet Mendoza, Electronically Approved : 07/01/2020 13:26:19
[2020-07-01] MEDS ORDERED: NITROGLYCERIN SUBLINGUAL 0.4 MG BOTTLE OF 25. SL PRN (13:30)
--- NOTE | 2020-07-01 14:54 | CARD ---
MR#: [id number] Date of Study: 07/01/2020 Ordering Physician: SAUMYA BLANCHARD, Referring Physician: SAUMYA BLANCHARD, Tech: Lainey Salvador APPROVED REPORT EXAM: Two-dimensional and M-mode echocardiogram with Doppler and color Doppler. Other Information Quality : GoodHR: 90bpm INDICATION Congestive Heart Failure RISK FACTORS Hypertension Diabetes 2D DIMENSIONS RVDd4.2 (2.9-3.5cm)Left Atrium(2D)4.8 (1.6-4.0cm) IVSd1.1 (0.7-1.1cm)Aortic Root(2D)3.2 (2.0-3.7cm) LVDd6.4 (3.9-5.9cm)LVOT Diameter2.1 (1.8-2.4cm) PWd1.0 (0.7-1.1cm)LVDs5.5 (2.5-4.0cm) FS (%) 14.4 %SV61.7 ml Aortic Valve AoV Peak Raji.87.8cm/sAoV VTI13.6cm AO Peak GR.3.1mmHgLVOT Peak Raji.72.6cm/s LVOT VTI 11.25cmAO Mean GR.2mmHg FREDI (VMAX)2.79ks1OVM (VTI)2.74cm2 Mitral Valve MV E Kjaqpxhg01.4cm/sMV DECEL [id number] MV A Pvttoimo14.6cm/sMV E Mean Gr.2mmHg MV DMO05fwT/A Ratio3.9 MVA (PHT)3.95cm2 TDI E/Lateral E'8.8E/Medial E'12.2 Pulmonary Valve PV Peak Wvbghfbu59.3cm/sPV Peak Grad.2mmHg Tricuspid Valve TR P. Uiqcszpg508dh/sRAP NABUOAHS69moOd TR Peak Gr.12ecCpTXKC90tcLb LEFT VENTRICLE The Left Ventricle is mildly dilated. There is borderline concentric left ventricular hypertrophy. Th e systolic function is severely impaired. The Ejection Fraction is estimated at 15%. There is severe global hypokinesis of the left ventricle. The left ventricular diastolic function and filling is nor mal for age. RIGHT VENTRICLE The right ventricle is mildly dilated. There is normal right ventricular wall thickness. Systolic fun ction is borderline reduced. ATRIA The left atrium is moderately dilated. The right atrium is mildly dilated. The interatrial septum is intact with no evidence for an atrial septal defect or patent foramen ovale as noted on 2-D or Dopple r imaging. AORTIC VALVE The aortic valve is thickened but opens well. Doppler and Color Flow revealed trace aortic regurgitat ion. There is no significant aortic valvular stenosis. Calculated aortic valve area is 2.92 cm2 with maximum pressure gradient of 4 mmHg and mean pressure gradient of 2 mmHg. MITRAL VALVE The mitral valve is normal in structure and function. There is no evidence of mitral valve prolapse. There is no mitral valve stenosis. Doppler and Color-flow revealed trace to mild mitral regurgitation . TRICUSPID VALVE The tricuspid valve is normal in structure and function. Doppler and Color Flow revealed trace to mil d tricuspid regurgitation with an estimated PAP of 46 mmHg. There is no tricuspid valve stenosis. PULMONIC VALVE The pulmonary valve is normal in structure and function. Doppler and Color Flow revealed trace to mil d pulmonic valvular regurgitation. GREAT VESSELS The aortic root is normal in size. The IVC is dilated and collapses <50% with inspiration. PERICARDIAL EFFUSION There is no evidence of significant pericardial effusion. Critical Notification Critical Value: No <Conclusion> The Left Ventricle is mildly dilated. The systolic function is severely impaired. The Ejection Fraction is estimated at 15%. There is severe global hypokinesis of the left ventricle. Doppler and Color Flow revealed trace aortic regurgitation. There is no significant aortic valvular stenosis. Doppler and Color-flow revealed trace to mild mitral regurgitation. Doppler and Color Flow revealed trace to mild tricuspid regurgitation with an estimated PAP of 46 mmH g. Signed by : Jean Pierre Hilton MD Electronically Approved : 07/01/2020 14:54:06
[2020-07-01] MEDS: ASPIRIN ENTERIC COATED 81 MG TABLET.DR. PO SCH (15:20)
--- NOTE | 2020-07-01 15:26 | NUR ---
SS following up with discharge planning. Order for Life Vest received. SS phoned and faxed order and clinical to [facility], ; fax [phone]. SS will continue to follow for discharge planning.
--- NOTE | 2020-07-01 17:27 | NUR ---
Have reviewed documentation completed by manager internet and made changes as needed
[2020-07-01] MEDS: CARVEDILOL 3.125 MG TABLET. PO SCH (17:47)
[2020-07-01] MEDS: ENOXAPARIN 40 MG/0.4 ML SYRINGE. SQ SCH (17:48)
[2020-07-02 00:08] LABS: HEMOGLOBIN A1C 11.6 % (4.8-5.6)
[2020-07-02 03:25] VITALS: BP 134/92
[2020-07-02 05:22] LABS: CALCIUM 8.4 mg/dL (8.5-10.1); CREATININE 1.2 mg/dL (0.7-1.3); GFR 77.5; MAGNESIUM 1.6 mg/dL (1.8-2.4); POTASSIUM 4.3 mmol/L (3.5-5.1)
[2020-07-02 07:25] VITALS: BP 126/91
[2020-07-02] MEDS ORDERED: ASPIRIN ENTERIC COATED 81 MG TABLET.DR. PO SCH (08:00)
[2020-07-02] MEDS: FUROSEMIDE 40 MG/4 ML VIAL. IVP SCH ×2 (08:24→14:32)
[2020-07-02] MEDS: ASPIRIN ENTERIC COATED 81 MG TABLET.DR. PO SCH (08:25)
[2020-07-02] MEDS: CARVEDILOL 3.125 MG TABLET. PO SCH (08:26)
[2020-07-02] MEDS: INSULIN LISPRO 300 UNITS/3 ML VIAL. SQ SCH ×2 (08:33→12:12)
[2020-07-02] MEDS ORDERED: SPIRONOLACTONE 25 MG TABLET PO SCH (09:00)
[2020-07-02] MEDS ORDERED: LOSARTAN POTASSIUM 25 MG TABLET. PO SCH (09:00)
--- NOTE | 2020-07-02 09:28 | PDOC ---
CARDIOLOGY PROGRESS NOTE OBJECTIVE: Vital Signs/I&O: Vital Signs Date Time Temp Pulse Resp B/P (MAP) Pulse Ox O2 Delivery O2 Flow Rate FiO2 07/02/20 08:26 87 126/91 07/02/20 08:15 Room Air 07/02/20 07:25 97.4 20 98 97.4 07/01/20 13:22 2.0 I & O 07/01/20 07/01/20 07/02/20 15:00 23:00 07:00 Intake Total 900 ml 800 ml 560 ml Output Total 1650 ml 2800 ml 1100 ml Balance -750 ml -2000 ml -540 ml CURRENT MEDICATIONS: Current Medications Medications (Trade) Dose Ordered Sig/Silverio Route PRN Reason Start Time Stop Time Status Last Admin Dose Admin Aspirin (Ecotrin) 81 mg DAILYWBKFT PO 07/01/20 12:00 07/02/20 08:25 Heparin Sodium/ Sodium Chloride (HEPARIN for ARTERIAL LINE FLUSH) 1,000 unit 1X ONCE IART 07/01/20 13:15 07/01/20 13:17 DC 07/01/20 13:19 Midazolam HCl (Versed) 2 mg 1X ONCE IV 07/01/20 13:15 07/01/20 13:17 DC 07/01/20 13:21 Fentanyl Citrate (Fentanyl 2ml Vial) 50 mcg 1X ONCE IV 07/01/20 13:15 07/01/20 13:17 DC 07/01/20 13:21 Iodixanol (Visipaque 320) 92 ml 1X ONCE IART 07/01/20 13:15 07/01/20 13:17 DC 07/01/20 13:19 Lidocaine HCl (Lidocaine 1% 20ml Vial) 20 ml 1X ONCE INJ 07/01/20 13:15 07/01/20 13:17 DC 07/01/20 13:19 Carvedilol (Coreg) 3.125 mg BIDWMEALS PO 07/01/20 17:00 07/02/20 08:26 Losartan Potassium (Cozaar) 25 mg DAILY PO 07/02/20 09:00 07/02/20 08:25 Spironolactone (Aldactone) 25 mg DAILY PO 07/02/20 09:00 07/02/20 08:25 DIAGNOSTIC TESTING: Labs: Laboratory Tests 07/02/20 04:30 Laboratory Tests Test 07/01/20 11:18 07/01/20 11:53 07/01/20 12:05 07/01/20 15:27 Glucose (Fingerstick) 292 mg/dL (70-99) H 158 mg/dL (70-99) H SARS-CoV-2 Antigen (Rapid) Negative (NEGATIVE) Urine Opiates Screen Neg (NEG) Urine Methadone Screen Neg (NEG) Urine Barbiturates Neg (NEG) Urine Phencyclidine Screen Pos (NEG) Urine Amphetamine/Methamphetamine Neg (NEG) Urine Benzodiazepines Screen Neg (NEG) Urine Cocaine Screen Neg (NEG) Urine Cannabinoids Screen Neg (NEG) Urine Ethyl Alcohol Neg (NEG) Test 07/01/20 16:03 07/01/20 20:48 07/02/20 04:30 07/02/20 07:28 Glucose (Fingerstick) 223 mg/dL (70-99) H 155 mg/dL (70-99) H 236 mg/dL (70-99) H Sodium Level 136 mmol/L (136-145) Potassium Level 4.3 mmol/L (3.5-5.1) Chloride Level 100 mmol/L (98-107) Carbon Dioxide Level 27 mmol/L (21-32) Anion Gap 9 (6-14) Blood Urea Nitrogen 17 mg/dL (8-26) Creatinine 1.2 mg/dL (0.7-1.3) Estimated GFR (Cockcroft-Gault) 77.5 Glucose Level 237 mg/dL (70-99) H Calcium Level 8.4 mg/dL (8.5-10.1) L ASSESSMENT: 1. NICM PLAN: 1. Continue coreg, losartan, abraham and lasix 40mg daily when discharged. 2. Stop asa. ok to dc from CV standpoint after lifevest. Thanks Justicifation of Admission Dx: Justifications for Admission: Justification of Admission Dx: N/A HERMINIA GARCIA MD Jul 02, 2020 09:28
--- NOTE | 2020-07-02 10:38 | PDOC ---
PROGRESS NOTES Date of Service: DATE: 07/02/20 TIME: 10:38 Chief Complaint Chief Complaint DISCHARGE DX New onset CHF Dyspnea Diabetes Type 2, UNCONTROLLED Abdominal pain Ansasarca Ascites pleural effusion PCP ABUSE HYPOMAGNESEMIA PLAN LIFEVEST IV MG LANTUS 10 UNITS SQ Q HS REFER FOR SUBSTANCE ABUSE RX SEE CARDIOLOGY SOON, PCP NEXT WEEK D/C PLANNING 34 MIN History of Present Illness History of Present Illness seen in er with new onset chf, has noted more dyspnea at work x several day, has been eating high sodium foods 50-year-old male who presents to the emergency room complaining of abdominal discomfort, abdominal distention, difficulty with constipation. Patient states this this is been ongoing for the last couple of months and he tried to see his primary care physician for this but his concerns were not addressed. He states that he feels like his abdomen is hard all the time and he does not know the last time that he has had a normal bowel movement. He has gained weight but has a decreased appetite. He does have bilateral swelling in his legs which he attributes to working on his feet all day. Only history is diabetes which he has been taking his medications for. He denies any chest pain, shortness of breath, URI symptoms, dysuria, difficulty with urination. He has had some intermittent nausea and has had one episode of vomiting. Works for [email or web address] 07/02 Pt seen and examined. DW RN and DW case management. Pt denies SOA and denies chest pain. Abdominal discomfort and pain is no longer present. NEEDS REFERRAL FOR SUBSTANCE ABUSE, OFF WORK FOR NOW Vitals Vitals Vital Signs Date Time Temp Pulse Resp B/P (MAP) Pulse Ox O2 Delivery O2 Flow Rate FiO2 07/02/20 08:26 87 126/91 07/02/20 08:15 Room Air 07/02/20 07:25 97.4 20 98 97.4 07/01/20 13:22 2.0 Physical Exam General: Alert, Oriented X3, Cooperative, No acute distress Heart: Regular rate (SR), Normal S1, Other (distant heart sounds) Abdomen: Normal bowel sounds, Soft, No tenderness Extremities: No clubbing, No cyanosis, No edema, Other (1-2+ bilateral LE pitting edema) Skin: No significant lesion Labs LABS Laboratory Tests Test 07/01/20 11:18 07/01/20 11:53 07/01/20 12:03 07/01/20 12:05 Glucose (Fingerstick) 292 mg/dL (70-99) SARS-CoV-2 Antigen (Rapid) Negative (NEGATIVE) Troponin I Quantitative 0.071 ng/mL (0.000-0.055) Urine Opiates Screen Neg (NEG) Urine Methadone Screen Neg (NEG) Urine Barbiturates Neg (NEG) Urine Phencyclidine Screen Pos (NEG) Urine Amphetamine/Methamphetamine Neg (NEG) Urine Benzodiazepines Screen Neg (NEG) Urine Cocaine Screen Neg (NEG) Urine Cannabinoids Screen Neg (NEG) Urine Ethyl Alcohol Neg (NEG) Test 07/01/20 15:27 07/01/20 16:03 07/01/20 20:48 07/02/20 04:30 Glucose (Fingerstick) 158 mg/dL (70-99) 223 mg/dL (70-99) 155 mg/dL (70-99) Sodium Level 136 mmol/L (136-145) Potassium Level 4.3 mmol/L (3.5-5.1) Chloride Level 100 mmol/L (98-107) Carbon Dioxide Level 27 mmol/L (21-32) Anion Gap 9 (6-14) Blood Urea Nitrogen 17 mg/dL (8-26) Creatinine 1.2 mg/dL (0.7-1.3) Estimated GFR (Cockcroft-Gault) 77.5 Glucose Level 237 mg/dL (70-99) Calcium Level 8.4 mg/dL (8.5-10.1) Magnesium Level 1.6 mg/dL (1.8-2.4) Troponin I Quantitative 0.130 ng/mL (0.000-0.055) Test 07/02/20 07:28 Glucose (Fingerstick) 236 mg/dL (70-99) Assessment and Plan Assessmemt and Plan Problems Medical Problems: (1) Abdominal pain Status: Acute (2) Anasarca Status: Acute (3) New onset of congestive heart failure Status: Acute (4) Pleural effusion Status: Acute Comment Review of Relevant I have reviewed the following items tory (where applicable) has been applied. Labs Laboratory Tests Test 06/30/20 12:15 06/30/20 13:20 06/30/20 17:10 06/30/20 20:29 White Blood Count 7.2 x10^3/uL (4.0-11.0) Red Blood Count 4.80 x10^6/uL (4.30-5.70) Hemoglobin 14.4 g/dL (13.0-17.5) Hematocrit 44.5 % (39.0-53.0) Mean Corpuscular Volume 93 fL (79-100) Mean Corpuscular Hemoglobin 30 pg (25-35) Mean Corpuscular Hemoglobin Concent 32 g/dL (31-37) Red Cell Distribution Width 14.7 % (11.5-14.5) Platelet Count 185 x10^3/uL (140-400) Neutrophils (%) (Auto) 66 % (31-73) Lymphocytes (%) (Auto) 24 % (24-48) Monocytes (%) (Auto) 8 % (0-9) Eosinophils (%) (Auto) 1 % (0-3) Basophils (%) (Auto) 1 % (0-3) Neutrophils # (Auto) 4.7 x10^3/uL (1.8-7.7) Lymphocytes # (Auto) 1.7 x10^3/uL (1.0-4.8) Monocytes # (Auto) 0.6 x10^3/uL (0.0-1.1) Eosinophils # (Auto) 0.1 x10^3/uL (0.0-0.7) Basophils # (Auto) 0.1 x10^3/uL (0.0-0.2) Sodium Level 134 mmol/L (136-145) Potassium Level 4.1 mmol/L (3.5-5.1) Chloride Level 100 mmol/L (98-107) Carbon Dioxide Level 27 mmol/L (21-32) Anion Gap 7 (6-14) Blood Urea Nitrogen 14 mg/dL (8-26) Creatinine 1.3 mg/dL (0.7-1.3) Estimated GFR (Cockcroft-Gault) 70.7 BUN/Creatinine Ratio 11 (6-20) Glucose Level 364 mg/dL (70-99) Calcium Level 8.7 mg/dL (8.5-10.1) Total Bilirubin 1.5 mg/dL (0.2-1.0) Aspartate Amino Transf (AST/SGOT) 33 U/L (15-37) Alanine Aminotransferase (ALT/SGPT) 51 U/L (16-63) Alkaline Phosphatase 463 U/L (46-116) Troponin I Quantitative 0.085 ng/mL (0.000-0.055) [id number]-Type Natriuretic Peptide 3450 pg/mL (0-124) Total Protein 5.9 g/dL (6.4-8.2) Albumin 2.5 g/dL (3.4-5.0) Albumin/Globulin Ratio 0.7 (1.0-1.7) Lipase 111 U/L (73-393) Thyroid Stimulating Hormone (TSH) 4.837 uIU/mL (0.358-3.74) Free Thyroxine 1.30 ng/dL (0.76-1.46) Urine Collection Type Unknown Urine Color Mell Urine Clarity Clear Urine pH 6.0 (<5.0-8.0) Urine Specific [place] 1.020 (1.000-1.030) Urine Protein 100 mg/dL (NEG-TRACE) Urine Glucose (UA) >=1000 mg/dL (NEG) Urine Ketones (Stick) Negative mg/dL (NEG) Urine Blood Negative (NEG) Urine Nitrite Negative (NEG) Urine Bilirubin Small (NEG) Urine Urobilinogen Dipstick 1.0 mg/dL (0.2 mg/dL) Urine Leukocyte Esterase Negative (NEG) Urine RBC 0 /HPF (0-2) Urine WBC 20-40 /HPF (0-4) Urine Bacteria Many /HPF (0-FEW) Urine Hyaline Casts Moderate /HPF Urine Mucus Mod /LPF Glucose (Fingerstick) 372 mg/dL (70-99) 194 mg/dL (70-99) Test 07/01/20 04:00 07/01/20 07:21 07/01/20 11:18 07/01/20 11:53 White Blood Count 7.5 x10^3/uL (4.0-11.0) Red Blood Count 4.68 x10^6/uL (4.30-5.70) Hemoglobin 14.2 g/dL (13.0-17.5) Hematocrit 43.2 % (39.0-53.0) Mean Corpuscular Volume 92 fL (79-100) Mean Corpuscular Hemoglobin 30 pg (25-35) Mean Corpuscular Hemoglobin Concent 33 g/dL (31-37) Red Cell Distribution Width 14.1 % (11.5-14.5) Platelet Count 173 x10^3/uL (140-400) Neutrophils (%) (Auto) 64 % (31-73) Lymphocytes (%) (Auto) 26 % (24-48) Monocytes (%) (Auto) 8 % (0-9) Eosinophils (%) (Auto) 2 % (0-3) Basophils (%) (Auto) 1 % (0-3) Neutrophils # (Auto) 4.8 x10^3/uL (1.8-7.7) Lymphocytes # (Auto) 1.9 x10^3/uL (1.0-4.8) Monocytes # (Auto) 0.6 x10^3/uL (0.0-1.1) Eosinophils # (Auto) 0.1 x10^3/uL (0.0-0.7) Basophils # (Auto) 0.1 x10^3/uL (0.0-0.2) Sodium Level 136 mmol/L (136-145) Potassium Level 4.4 mmol/L (3.5-5.1) Chloride Level 102 mmol/L (98-107) Carbon Dioxide Level 24 mmol/L (21-32) Anion Gap 10 (6-14) Blood Urea Nitrogen 18 mg/dL (8-26) Creatinine 1.3 mg/dL (0.7-1.3) Estimated GFR (Cockcroft-Gault) 70.7 Glucose Level 239 mg/dL (70-99) Hemoglobin A1c 11.6 % (4.8-5.6) Calcium Level 8.2 mg/dL (8.5-10.1) Troponin I Quantitative 0.076 ng/mL (0.000-0.055) Triglycerides Level 73 mg/dL (0-150) Cholesterol Level 112 mg/dL (0-200) LDL Cholesterol, Calculated 60 mg/dL (0-100) VLDL Cholesterol, Calculated 15 mg/dL (0-40) Non-HDL Cholesterol Calculated 75 mg/dL (0-129) HDL Cholesterol 37 mg/dL (40-60) Cholesterol/HDL Ratio 3.0 Glucose (Fingerstick) 255 mg/dL (70-99) 292 mg/dL (70-99) SARS-CoV-2 Antigen (Rapid) Negative (NEGATIVE) Test 07/01/20 12:03 07/01/20 12:05 07/01/20 15:27 07/01/20 16:03 Troponin I Quantitative 0.071 ng/mL (0.000-0.055) Urine Opiates Screen Neg (NEG) Urine Methadone Screen Neg (NEG) Urine Barbiturates Neg (NEG) Urine Phencyclidine Screen Pos (NEG) Urine Amphetamine/Methamphetamine Neg (NEG) Urine Benzodiazepines Screen Neg (NEG) Urine Cocaine Screen Neg (NEG) Urine Cannabinoids Screen Neg (NEG) Urine Ethyl Alcohol Neg (NEG) Glucose (Fingerstick) 158 mg/dL (70-99) 223 mg/dL (70-99) Test 07/01/20 20:48 07/02/20 04:30 07/02/20 07:28 Glucose (Fingerstick) 155 mg/dL (70-99) 236 mg/dL (70-99) Sodium Level 136 mmol/L (136-145) Potassium Level 4.3 mmol/L (3.5-5.1) Chloride Level 100 mmol/L (98-107) Carbon Dioxide Level 27 mmol/L (21-32) Anion Gap 9 (6-14) Blood Urea Nitrogen 17 mg/dL (8-26) Creatinine 1.2 mg/dL (0.7-1.3) Estimated GFR (Cockcroft-Gault) 77.5 Glucose Level 237 mg/dL (70-99) Calcium Level 8.4 mg/dL (8.5-10.1) Magnesium Level 1.6 mg/dL (1.8-2.4) Troponin I Quantitative 0.130 ng/mL (0.000-0.055) Laboratory Tests Test 07/01/20 11:18 07/01/20 11:53 07/01/20 12:03 07/01/20 12:05 Glucose (Fingerstick) 292 mg/dL (70-99) SARS-CoV-2 Antigen (Rapid) Negative (NEGATIVE) Troponin I Quantitative 0.071 ng/mL (0.000-0.055) Urine Opiates Screen Neg (NEG) Urine Methadone Screen Neg (NEG) Urine Barbiturates Neg (NEG) Urine Phencyclidine Screen Pos (NEG) Urine Amphetamine/Methamphetamine Neg (NEG) Urine Benzodiazepines Screen Neg (NEG) Urine Cocaine Screen Neg (NEG) Urine Cannabinoids Screen Neg (NEG) Urine Ethyl Alcohol Neg (NEG) Test 07/01/20 15:27 07/01/20 16:03 07/01/20 20:48 07/02/20 04:30 Glucose (Fingerstick) 158 mg/dL (70-99) 223 mg/dL (70-99) 155 mg/dL (70-99) Sodium Level 136 mmol/L (136-145) Potassium Level 4.3 mmol/L (3.5-5.1) Chloride Level 100 mmol/L (98-107) Carbon Dioxide Level 27 mmol/L (21-32) Anion Gap 9 (6-14) Blood Urea Nitrogen 17 mg/dL (8-26) Creatinine 1.2 mg/dL (0.7-1.3) Estimated GFR (Cockcroft-Gault) 77.5 Glucose Level 237 mg/dL (70-99) Calcium Level 8.4 mg/dL (8.5-10.1) Magnesium Level 1.6 mg/dL (1.8-2.4) Troponin I Quantitative 0.130 ng/mL (0.000-0.055) Test 07/02/20 07:28 Glucose (Fingerstick) 236 mg/dL (70-99) Medications Current Medications Iohexol (Omnipaque 240 Mg/ml) 30 ml 1X ONCE PO Last administered on 06/30/20at 13:00; Start 06/30/20 at 13:00; Stop 06/30/20 at 13:03; Status DC Iohexol (Omnipaque 300 Mg/ml) 75 ml 1X ONCE IV Last administered on 06/30/20at 13:36; Start 06/30/20 at 13:00; Stop 06/30/20 at 13:03; Status DC Furosemide (Lasix) 40 mg 1X ONCE IVP Last administered on 06/30/20at 15:11; Start 06/30/20 at 15:00; Stop 06/30/20 at 15:01; Status DC Sodium Chloride (Normal Saline Flush) 3 ml QSHIFT PRN IV AFTER MEDS AND BLOOD DRAWS; Start 06/30/20 at 17:00 Ondansetron HCl (Zofran) 4 mg PRN Q4HRS PRN IV NAUSEA/VOMITING; Start 06/30/20 at 17:00 Acetaminophen (Tylenol) 650 mg PRN Q4HRS PRN PO TEMP OVER 100.4F OR MILD PAIN; Start 06/30/20 at 17:00 Sodium Monofluorophosphate (Fleet Adult) 133 ml PRN DAILY PRN GA CONSTIPATION; Start 06/30/20 at 17:00 Docusate Sodium (Colace) 100 mg PRN BID PRN PO HARD STOOLS; Start 06/30/20 at 17:00 Albuterol Sulfate (Ventolin Neb Soln) 2.5 mg PRN Q4HRS PRN NEB SHORTNESS OF BREATH; Start 06/30/20 at 17:00 Guaifenesin (Robitussin) 200 mg PRN Q4HRS PRN PO COUGH; Start 06/30/20 at 17:00 Enoxaparin Sodium (Lovenox 40mg Syringe) 40 mg Q24H SQ Last administered on 07/01/20at 17:48; Start 06/30/20 at 18:00 Insulin Human Lispro (HumaLOG) 0-7 UNITS TIDWMEALS SQ Last administered on 07/02/20at 08:33; Start 06/30/20 at 17:30 Dextrose (Dextrose 50%-Water Syringe) 12.5 gm PRN Q15MIN PRN IV SEE COMMENTS; Start 06/30/20 at 17:30 Furosemide (Lasix) 40 mg BID92 IVP Last administered on 07/02/20at 08:24; Start 07/01/20 at 09:00 Insulin Human Lispro (HumaLOG) 0-5 UNITS TIDWMEALS SQ ; Start 07/01/20 at 08:00; Status UNV Insulin Human Lispro (HumaLOG) 0-7 UNITS TIDWMEALS SQ ; Start 07/01/20 at 08:00; Status UNV Dextrose (Dextrose 50%-Water Syringe) 12.5 gm PRN Q15MIN PRN IV SEE COMMENTS; Start 06/30/20 at 22:15; Status UNV Aspirin (Ecotrin) 81 mg DAILYWBKFT PO Last administered on 07/02/20at 08:25; Start 07/01/20 at 12:00 Aspirin (Ecotrin) 81 mg DAILYWBKFT PO ; Start 07/02/20 at 08:00; Status UNV Iodixanol (Visipaque 320) 100 ml STK-MED ONCE .ROUTE ; Start 07/01/20 at 11:55; Stop 07/01/20 at 11:56; Status DC Lidocaine HCl (Xylocaine-Mpf 1% 2ml Vial) 2 ml STK-MED ONCE .ROUTE ; Start 07/01/20 at 11:55; Stop 07/01/20 at 11:56; Status DC Heparin Sodium/ Sodium Chloride 500 ml @ As Directed STK-MED ONCE .ROUTE ; Start 07/01/20 at 11:56; Stop 07/01/20 at 11:56; Status DC Fentanyl Citrate (Fentanyl 2ml Vial) 100 mcg STK-MED ONCE .ROUTE ; Start 07/01/20 at 12:43; Stop 07/01/20 at 12:43; Status DC Midazolam HCl (Versed) 2 mg STK-MED ONCE .ROUTE ; Start 07/01/20 at 12:43; Stop 07/01/20 at 12:43; Status DC Lidocaine HCl (Lidocaine 1% 20ml Vial) 20 ml STK-MED ONCE .ROUTE ; Start 07/01/20 at 12:52; Stop 07/01/20 at 12:52; Status DC Heparin Sodium/ Sodium Chloride (HEPARIN for ARTERIAL LINE FLUSH) 1,000 unit 1X ONCE IART Last administered on 07/01/20at 13:19; Start 07/01/20 at 13:15; Stop 07/01/20 at 13:17; Status DC Midazolam HCl (Versed) 2 mg 1X ONCE IV Last administered on 07/01/20at 13:21; Start 07/01/20 at 13:15; Stop 07/01/20 at 13:17; Status DC Fentanyl Citrate (Fentanyl 2ml Vial) 50 mcg 1X ONCE IV Last administered on 07/01/20at 13:21; Start 07/01/20 at 13:15; Stop 07/01/20 at 13:17; Status DC Iodixanol (Visipaque 320) 92 ml 1X ONCE IART Last administered on 07/01/20at 13:19; Start 07/01/20 at 13:15; Stop 07/01/20 at 13:17; Status DC Lidocaine HCl (Lidocaine 1% 20ml Vial) 20 ml 1X ONCE INJ Last administered on 07/01/20at 13:19; Start 07/01/20 at 13:15; Stop 07/01/20 at 13:17; Status DC Nitroglycerin (Nitrostat) 0.4 mg PRN Q5MIN PRN SL CHEST PAIN; Start 07/01/20 at 13:30 Carvedilol (Coreg) 3.125 mg BIDWMEALS PO Last administered on 07/02/20at 08:26; Start 07/01/20 at 17:00 Losartan Potassium (Cozaar) 25 mg DAILY PO Last administered on 07/02/20at 08:25; Start 07/02/20 at 09:00 Spironolactone (Aldactone) 25 mg DAILY PO Last administered on 07/02/20at 08:25; Start 07/02/20 at 09:00 Vitals/I & O Vital Sign - Last 24 Hours 07/01/20 07/01/20 07/01/20 07/01/20 10:43 13:21 13:22 13:34 Temp 98.0 98.0 Pulse 92 90 91 Resp 16 17 15 B/P (MAP) 142/91 (108) 130/82 (98) Pulse Ox 96 99 99 O2 Delivery Room Air Nasal Cannula Nasal Cannula O2 Flow Rate 2.0 2.0 07/01/20 07/01/20 07/01/20 07/01/20 13:49 14:04 14:34 14:37 Temp 97.9 97.9 Pulse 87 88 87 87 Resp 16 B/P (MAP) 126/79 (95) 119/80 (93) 110/84 (93) 116/83 (94) Pulse Ox 98 O2 Delivery Room Air 07/01/20 07/01/20 07/01/20 07/01/20 14:49 15:04 15:19 15:34 Pulse 89 99 95 91 B/P (MAP) 114/92 (99) 117/95 (102) 128/101 (110) 130/94 (106) 07/01/20 07/01/20 07/01/20 07/01/20 15:49 16:04 17:47 19:15 Temp 97.7 97.7 Pulse 89 89 88 87 Resp 17 B/P (MAP) 127/84 (98) 114/81 (92) 133/87 (102) Pulse Ox 99 O2 Delivery Room Air 07/01/20 07/01/20 07/02/20 07/02/20 20:00 23:00 03:25 07:25 Temp 97.8 98.1 97.4 97.8 98.1 97.4 Pulse 85 89 89 Resp 18 17 20 B/P (MAP) 125/87 (100) 134/92 (106) 126/91 (103) Pulse Ox 95 100 98 O2 Delivery Room Air Room Air Room Air Room Air 07/02/20 07/02/20 07/02/20 08:15 08:25 08:26 Pulse 87 87 B/P (MAP) 126/91 126/91 O2 Delivery Room Air Intake and Output 07/01/20 07/01/20 07/02/20 15:00 23:00 07:00 Intake Total 900 ml 800 ml 560 ml Output Total 1650 ml 2800 ml 1100 ml Balance -750 ml -2000 ml -540 ml Justicifation of Admission Dx: Justifications for Admission: Justification of Admission Dx: Yes CHF: Hemodynamic Instability Angina: Unstable Variant Comments: ACUTE CHF, SEVERE CARDIOMYOPATHY SAUMYA BLANCHARD MD Jul 02, 2020 10:38
[2020-07-02 11:32] VITALS: BP 118/79
[2020-07-02] MEDS ORDERED: MAGNESIUM SULFATE 2GM 50 ML IV ONE (12:15)
--- NOTE | 2020-07-02 12:15 | PDOC3 ---
Discharge Summary Date of Admission: Jun 30, 2020 Date of Discharge: Jul 02, 2020 Follow-Up: 3-5 days Admitting Diagnosis comment: Chief Complaint Chief Complaint DISCHARGE DX New onset CHF Dyspnea Diabetes Type 2, UNCONTROLLED Abdominal pain Ansasarca Ascites pleural effusion PCP ABUSE HYPOMAGNESEMIA PLAN LIFEVEST IV MG LANTUS 10 UNITS SQ Q HS REFER FOR SUBSTANCE ABUSE RX SEE CARDIOLOGY SOON, PCP NEXT WEEK D/C PLANNING 34 MIN History of Present Illness History of Present Illness seen in er with new onset chf, has noted more dyspnea at work x several day, has been eating high sodium foods 50-year-old male who presents to the emergency room complaining of abdominal discomfort, abdominal distention, difficulty with constipation. Patient states this this is been ongoing for the last couple of months and he tried to see his primary care physician for this but his concerns were not addressed. He states that he feels like his abdomen is hard all the time and he does not know the last time that he has had a normal bowel movement. He has gained weight but has a decreased appetite. He does have bilateral swelling in his legs which he attributes to working on his feet all day. Only history is diabetes which he has been taking his medications for. He denies any chest pain, shortness of breath, URI symptoms, dysuria, difficulty with urination. He has had some intermittent nausea and has had one episode of vomiting. Works for [email or web address] 07/02 Pt seen and examined. DW RN and DW case management. Pt denies SOA and denies chest pain. Abdominal discomfort and pain is no longer present. NEEDS REFERRAL FOR SUBSTANCE ABUSE, OFF WORK FOR NOW Vitals Vitals Vital Signs Date Time Temp Pulse Resp B/P (MAP) Pulse Ox O2 Delivery O2 Flow Rate FiO2 07/02/20 08:26 87 126/91 07/02/20 08:15 Room Air 07/02/20 07:25 97.4 20 98 97.4 07/01/20 13:22 2.0 Physical Exam General: Alert, Oriented X3, Cooperative, No acute distress Heart: Regular rate (SR), Normal S1, Other (distant heart sounds) Abdomen: Normal bowel sounds, Soft, No tenderness Extremities: No clubbing, No cyanosis, No edema, Other (1-2+ bilateral LE pitting edema) Skin: No significant lesion FINAL DIAGNOSIS Problems Medical Problems: (1) Abdominal pain Status: Acute (2) Anasarca Status: Acute (3) New onset of congestive heart failure Status: Acute (4) Pleural effusion Status: Acute Brief Hospital Course Mr. Ledesma is a 50 old [sex] who presented with [ ACUTE SEVERE CHF, UNCONTROLLED DIABETES] CONDITION AT DISCHARGE: Improved Discharge Medications Current Medications Iohexol (Omnipaque 240 Mg/ml) 30 ml 1X ONCE PO Last administered on 06/30/20at 13:00; Start 06/30/20 at 13:00; Stop 06/30/20 at 13:03; Status DC Iohexol (Omnipaque 300 Mg/ml) 75 ml 1X ONCE IV Last administered on 06/30/20at 13:36; Start 06/30/20 at 13:00; Stop 06/30/20 at 13:03; Status DC Furosemide (Lasix) 40 mg 1X ONCE IVP Last administered on 06/30/20at 15:11; Start 06/30/20 at 15:00; Stop 06/30/20 at 15:01; Status DC Sodium Chloride (Normal Saline Flush) 3 ml QSHIFT PRN IV AFTER MEDS AND BLOOD DRAWS; Start 06/30/20 at 17:00 Ondansetron HCl (Zofran) 4 mg PRN Q4HRS PRN IV NAUSEA/VOMITING; Start 06/30/20 at 17:00 Acetaminophen (Tylenol) 650 mg PRN Q4HRS PRN PO TEMP OVER 100.4F OR MILD PAIN; Start 06/30/20 at 17:00 Sodium Monofluorophosphate (Fleet Adult) 133 ml PRN DAILY PRN ND CONSTIPATION; Start 06/30/20 at 17:00 Docusate Sodium (Colace) 100 mg PRN BID PRN PO HARD STOOLS; Start 06/30/20 at 17:00 Albuterol Sulfate (Ventolin Neb Soln) 2.5 mg PRN Q4HRS PRN NEB SHORTNESS OF BREATH; Start 06/30/20 at 17:00 Guaifenesin (Robitussin) 200 mg PRN Q4HRS PRN PO COUGH; Start 06/30/20 at 17:00 Enoxaparin Sodium (Lovenox 40mg Syringe) 40 mg Q24H SQ Last administered on 07/01/20at 17:48; Start 06/30/20 at 18:00 Insulin Human Lispro (HumaLOG) 0-7 UNITS TIDWMEALS SQ Last administered on at 08:33; Start 06/30/20 at 17:30 Dextrose (Dextrose 50%-Water Syringe) 12.5 gm PRN Q15MIN PRN IV SEE COMMENTS; Start 06/30/20 at 17:30 Furosemide (Lasix) 40 mg BID92 IVP Last administered on 07/02/20at 08:24; Start 07/01/20 at 09:00 Insulin Human Lispro (HumaLOG) 0-5 UNITS TIDWMEALS SQ ; Start 07/01/20 at 08:00; Status UNV Insulin Human Lispro (HumaLOG) 0-7 UNITS TIDWMEALS SQ ; Start 07/01/20 at 08:00; Status UNV Dextrose (Dextrose 50%-Water Syringe) 12.5 gm PRN Q15MIN PRN IV SEE COMMENTS; Start 06/30/20 at 22:15; Status UNV Aspirin (Ecotrin) 81 mg DAILYWBKFT PO Last administered on 07/02/20at 08:25; Start 07/01/20 at 12:00 Aspirin (Ecotrin) 81 mg DAILYWBKFT PO ; Start 07/02/20 at 08:00; Status UNV Iodixanol (Visipaque 320) 100 ml STK-MED ONCE .ROUTE ; Start 07/01/20 at 11:55; Stop 07/01/20 at 11:56; Status DC Lidocaine HCl (Xylocaine-Mpf 1% 2ml Vial) 2 ml STK-MED ONCE .ROUTE ; Start 07/01/20 at 11:55; Stop 07/01/20 at 11:56; Status DC Heparin Sodium/ Sodium Chloride 500 ml @ As Directed STK-MED ONCE .ROUTE ; Start 07/01/20 at 11:56; Stop 07/01/20 at 11:56; Status DC Fentanyl Citrate (Fentanyl 2ml Vial) 100 mcg STK-MED ONCE .ROUTE ; Start 07/01/20 at 12:43; Stop 07/01/20 at 12:43; Status DC Midazolam HCl (Versed) 2 mg STK-MED ONCE .ROUTE ; Start 07/01/20 at 12:43; Stop 07/01/20 at 12:43; Status DC Lidocaine HCl (Lidocaine 1% 20ml Vial) 20 ml STK-MED ONCE .ROUTE ; Start 07/01/20 at 12:52; Stop 07/01/20 at 12:52; Status DC Heparin Sodium/ Sodium Chloride (HEPARIN for ARTERIAL LINE FLUSH) 1,000 unit 1X ONCE IART Last administered on 07/01/20at 13:19; Start 07/01/20 at 13:15; Stop 07/01/20 at 13:17; Status DC Midazolam HCl (Versed) 2 mg 1X ONCE IV Last administered on 07/01/20at 13:21; Start 07/01/20 at 13:15; Stop 07/01/20 at 13:17; Status DC Fentanyl Citrate (Fentanyl 2ml Vial) 50 mcg 1X ONCE IV Last administered on 07/01/20at 13:21; Start 07/01/20 at 13:15; Stop 07/01/20 at 13:17; Status DC Iodixanol (Visipaque 320) 92 ml 1X ONCE IART Last administered on 07/01/20at 13:19; Start 07/01/20 at 13:15; Stop 07/01/20 at 13:17; Status DC Lidocaine HCl (Lidocaine 1% 20ml Vial) 20 ml 1X ONCE INJ Last administered on 07/01/20at 13:19; Start 07/01/20 at 13:15; Stop 07/01/20 at 13:17; Status DC Nitroglycerin (Nitrostat) 0.4 mg PRN Q5MIN PRN SL CHEST PAIN; Start 07/01/20 at 13:30 Carvedilol (Coreg) 3.125 mg BIDWMEALS PO Last administered on 07/02/20at 08:26; Start 07/01/20 at 17:00 Losartan Potassium (Cozaar) 25 mg DAILY PO Last administered on 07/02/20at 08:25; Start 07/02/20 at 09:00 Spironolactone (Aldactone) 25 mg DAILY PO Last administered on 07/02/20at 08:25; Start 07/02/20 at 09:00 Vital Signs Vital Signs Date Time Temp Pulse Resp B/P (MAP) Pulse Ox O2 Delivery O2 Flow Rate FiO2 07/02/20 11:32 98.0 87 18 118/79 (92) 98 98.0 07/02/20 08:15 Room Air 07/01/20 13:22 2.0 Labs Laboratory Tests Test 06/30/20 12:15 06/30/20 13:20 06/30/20 17:10 06/30/20 20:29 White Blood Count 7.2 x10^3/uL (4.0-11.0) Red Blood Count 4.80 x10^6/uL (4.30-5.70) Hemoglobin 14.4 g/dL (13.0-17.5) Hematocrit 44.5 % (39.0-53.0) Mean Corpuscular Volume 93 fL (79-100) Mean Corpuscular Hemoglobin 30 pg (25-35) Mean Corpuscular Hemoglobin Concent 32 g/dL (31-37) Red Cell Distribution Width 14.7 % (11.5-14.5) Platelet Count 185 x10^3/uL (140-400) Neutrophils (%) (Auto) 66 % (31-73) Lymphocytes (%) (Auto) 24 % (24-48) Monocytes (%) (Auto) 8 % (0-9) Eosinophils (%) (Auto) 1 % (0-3) Basophils (%) (Auto) 1 % (0-3) Neutrophils # (Auto) 4.7 x10^3/uL (1.8-7.7) Lymphocytes # (Auto) 1.7 x10^3/uL (1.0-4.8) Monocytes # (Auto) 0.6 x10^3/uL (0.0-1.1) Eosinophils # (Auto) 0.1 x10^3/uL (0.0-0.7) Basophils # (Auto) 0.1 x10^3/uL (0.0-0.2) Sodium Level 134 mmol/L (136-145) Potassium Level 4.1 mmol/L (3.5-5.1) Chloride Level 100 mmol/L (98-107) Carbon Dioxide Level 27 mmol/L (21-32) Anion Gap 7 (6-14) Blood Urea Nitrogen 14 mg/dL (8-26) Creatinine 1.3 mg/dL (0.7-1.3) Estimated GFR (Cockcroft-Gault) 70.7 BUN/Creatinine Ratio 11 (6-20) Glucose Level 364 mg/dL (70-99) Calcium Level 8.7 mg/dL (8.5-10.1) Total Bilirubin 1.5 mg/dL (0.2-1.0) Aspartate Amino Transf (AST/SGOT) 33 U/L (15-37) Alanine Aminotransferase (ALT/SGPT) 51 U/L (16-63) Alkaline Phosphatase 463 U/L (46-116) Troponin I Quantitative 0.085 ng/mL (0.000-0.055) UM-Nbu-L-Type Natriuretic Peptide 3450 pg/mL (0-124) Total Protein 5.9 g/dL (6.4-8.2) Albumin 2.5 g/dL (3.4-5.0) Albumin/Globulin Ratio 0.7 (1.0-1.7) Lipase 111 U/L (73-393) Thyroid Stimulating Hormone (TSH) 4.837 uIU/mL (0.358-3.74) Free Thyroxine 1.30 ng/dL (0.76-1.46) Urine Collection Type Unknown Urine Color Mell Urine Clarity Clear Urine pH 6.0 (<5.0-8.0) Urine Specific [place] 1.020 (1.000-1.030) Urine Protein 100 mg/dL (NEG-TRACE) Urine Glucose (UA) >=1000 mg/dL (NEG) Urine Ketones (Stick) Negative mg/dL (NEG) Urine Blood Negative (NEG) Urine Nitrite Negative (NEG) Urine Bilirubin Small (NEG) Urine Urobilinogen Dipstick 1.0 mg/dL (0.2 mg/dL) Urine Leukocyte Esterase Negative (NEG) Urine RBC 0 /HPF (0-2) Urine WBC 20-40 /HPF (0-4) Urine Bacteria Many /HPF (0-FEW) Urine Hyaline Casts Moderate /HPF Urine Mucus Mod /LPF Glucose (Fingerstick) 372 mg/dL (70-99) 194 mg/dL (70-99) Test 07/01/20 04:00 07/01/20 07:21 07/01/20 11:18 07/01/20 11:53 White Blood Count 7.5 x10^3/uL (4.0-11.0) Red Blood Count 4.68 x10^6/uL (4.30-5.70) Hemoglobin 14.2 g/dL (13.0-17.5) Hematocrit 43.2 % (39.0-53.0) Mean Corpuscular Volume 92 fL (79-100) Mean Corpuscular Hemoglobin 30 pg (25-35) Mean Corpuscular Hemoglobin Concent 33 g/dL (31-37) Red Cell Distribution Width 14.1 % (11.5-14.5) Platelet Count 173 x10^3/uL (140-400) Neutrophils (%) (Auto) 64 % (31-73) Lymphocytes (%) (Auto) 26 % (24-48) Monocytes (%) (Auto) 8 % (0-9) Eosinophils (%) (Auto) 2 % (0-3) Basophils (%) (Auto) 1 % (0-3) Neutrophils # (Auto) 4.8 x10^3/uL (1.8-7.7) Lymphocytes # (Auto) 1.9 x10^3/uL (1.0-4.8) Monocytes # (Auto) 0.6 x10^3/uL (0.0-1.1) Eosinophils # (Auto) 0.1 x10^3/uL (0.0-0.7) Basophils # (Auto) 0.1 x10^3/uL (0.0-0.2) Sodium Level 136 mmol/L (136-145) Potassium Level 4.4 mmol/L (3.5-5.1) Chloride Level 102 mmol/L (98-107) Carbon Dioxide Level 24 mmol/L (21-32) Anion Gap 10 (6-14) Blood Urea Nitrogen 18 mg/dL (8-26) Creatinine 1.3 mg/dL (0.7-1.3) Estimated GFR (Cockcroft-Gault) 70.7 Glucose Level 239 mg/dL (70-99) Hemoglobin A1c 11.6 % (4.8-5.6) Calcium Level 8.2 mg/dL (8.5-10.1) Troponin I Quantitative 0.076 ng/mL (0.000-0.055) Triglycerides Level 73 mg/dL (0-150) Cholesterol Level 112 mg/dL (0-200) LDL Cholesterol, Calculated 60 mg/dL (0-100) VLDL Cholesterol, Calculated 15 mg/dL (0-40) Non-HDL Cholesterol Calculated 75 mg/dL (0-129) HDL Cholesterol 37 mg/dL (40-60) Cholesterol/HDL Ratio 3.0 Glucose (Fingerstick) 255 mg/dL (70-99) 292 mg/dL (70-99) SARS-CoV-2 Antigen (Rapid) Negative (NEGATIVE) Test 07/01/20 11:55 07/01/20 12:03 07/01/20 12:05 07/01/20 15:27 Coronavirus (PCR) Not detected (Not Detected) Troponin I Quantitative 0.071 ng/mL (0.000-0.055) Urine Opiates Screen Neg (NEG) Urine Methadone Screen Neg (NEG) Urine Barbiturates Neg (NEG) Urine Phencyclidine Screen Pos (NEG) Urine Amphetamine/Methamphetamine Neg (NEG) Urine Benzodiazepines Screen Neg (NEG) Urine Cocaine Screen Neg (NEG) Urine Cannabinoids Screen Neg (NEG) Urine Ethyl Alcohol Neg (NEG) Glucose (Fingerstick) 158 mg/dL (70-99) Test 07/01/20 16:03 07/01/20 20:48 07/02/20 04:30 07/02/20 07:28 Glucose (Fingerstick) 223 mg/dL (70-99) 155 mg/dL (70-99) 236 mg/dL (70-99) Sodium Level 136 mmol/L (136-145) Potassium Level 4.3 mmol/L (3.5-5.1) Chloride Level 100 mmol/L (98-107) Carbon Dioxide Level 27 mmol/L (21-32) Anion Gap 9 (6-14) Blood Urea Nitrogen 17 mg/dL (8-26) Creatinine 1.2 mg/dL (0.7-1.3) Estimated GFR (Cockcroft-Gault) 77.5 Glucose Level 237 mg/dL (70-99) Calcium Level 8.4 mg/dL (8.5-10.1) Magnesium Level 1.6 mg/dL (1.8-2.4) Troponin I Quantitative 0.130 ng/mL (0.000-0.055) Test 07/02/20 12:00 Glucose (Fingerstick) 353 mg/dL (70-99) Laboratory Tests Test 07/01/20 15:27 07/01/20 16:03 07/01/20 20:48 07/02/20 04:30 Glucose (Fingerstick) 158 mg/dL (70-99) 223 mg/dL (70-99) 155 mg/dL (70-99) Sodium Level 136 mmol/L (136-145) Potassium Level 4.3 mmol/L (3.5-5.1) Chloride Level 100 mmol/L (98-107) Carbon Dioxide Level 27 mmol/L (21-32) Anion Gap 9 (6-14) Blood Urea Nitrogen 17 mg/dL (8-26) Creatinine 1.2 mg/dL (0.7-1.3) Estimated GFR (Cockcroft-Gault) 77.5 Glucose Level 237 mg/dL (70-99) Calcium Level 8.4 mg/dL (8.5-10.1) Magnesium Level 1.6 mg/dL (1.8-2.4) Troponin I Quantitative 0.130 ng/mL (0.000-0.055) Test 07/02/20 07:28 07/02/20 12:00 Glucose (Fingerstick) 236 mg/dL (70-99) 353 mg/dL (70-99) Allergies Allergies Coded Allergies Type Severity Reaction Last Updated Verified No Known Drug Allergies 06/30/20 No Disposition/Orders: D/C to Home Justicifation of Admission Dx: Justifications for Admission: Justification of Admission Dx: Yes CHF: Hemodynamic Instability Angina: Unstable Variant SAUMYA BLANCHARD MD Jul 02, 2020 12:15
[2020-07-02] MEDS ORDERED: INSU100V8 SQ (12:20)
[2020-07-02] MEDS ORDERED: FURO-68 PO (12:20)
[2020-07-02] MEDS ORDERED: ALBU2.5V8 NEB (12:20)
[2020-07-02] MEDS ORDERED: LOSA25TA54 PO (12:20)
[2020-07-02] MEDS ORDERED: MAGN400T5 PO (12:20)
[2020-07-02] MEDS ORDERED: DOCU-153 PO (12:20)
[2020-07-02] MEDS ORDERED: CARV3.1210 PO (12:20)
[2020-07-02] MEDS ORDERED: INSU100V35 SQ (12:20)
[2020-07-02] MEDS ORDERED: NITR0.4T24 SL (12:20)
[2020-07-02] MEDS ORDERED: SPIR25TA PO (12:20)
[2020-07-02] MEDS ORDERED: ACET325T9 PO (12:20)
--- NOTE | 2020-07-02 12:22 | DISCH ---
DISCHARGE INSTRUCTIONS Condition on Discharge Condition on Discharge: Guarded Activity After Discharge Activity Instructions for Disc: Avoid exertion Lifting Instructions after Dis: No heavy lifting, No pulling or pushing Driving Instructions after Dis: Do not drive Diet after Discharge Diet after Discharge: Cardiac, Diabetic No Calorie Level Liquid Texture: Thin Liquid Checks after Discharge Checks after discharge: Check blood press - daily Contacting the DRRaghavendra after DC Call your doctor for: If your condition worsens Follow-Up Follow up with: PCP NEXT WEEK Follow Up With: CARDIOLOGY SOON DIRECTED Warfarin Follow-Up Warfarin Follow UP: SEE SUBSTANCE ABUSE TREATMENT DAILY SAUMYA GALVEZ MD Jul 02, 2020 12:22
[2020-07-02] MEDS ORDERED: INSULIN GLARGINE SYRINGE. SQ SCH (21:00)
== END 2020-07-02 15:48 | disposition home or self-care (01) | DRG 287 ==
LOC: ER 11:45 → 2 NORTH 15:00
PROVIDERS: ADMIT Family Medicine; ATTEND Family Medicine
PROC: 4A023N7 Measurement of Cardiac Sampling and Pressure, Left Heart, Percutaneous Approach (ICD-10-PCS; principal; 2020-07-01)
PROC: B2111ZZ Fluoroscopy of Multiple Coronary Arteries using Low Osmolar Contrast (ICD-10-PCS; 2020-07-01)
DX: I50.23 Acute on chronic systolic (congestive) heart failure (principal); R18.8 Other ascites; I31.3 Pericardial effusion (noninflammatory); I42.8 Other cardiomyopathies; E11.65 Type 2 diabetes mellitus with hyperglycemia; E83.42 Hypomagnesemia; F16.10 Hallucinogen abuse, uncomplicated; K59.00 Constipation, unspecified; Z79.4 Long term (current) use of insulin; Z82.49 Family history of ischemic heart disease and other diseases of the circulatory system; Z20.828 Contact with and (suspected) exposure to other viral communicable diseases
CPT/HCPCS: 93458; 96374; 99285; G0269; 36415; 71046; 74177; 80048; 80053; 80061; 80307; 81001; 82962; 83036; 83690; 83735; 83880; 84439; 84443; 84484; 85025; 87426; 93005; 93306; 99152; C1760; C1769; C1892; J1644; J1650; J1815; J1940; J2250; J3010; J3475; J3490; Q9966; Q9967; U0003; C1771; G0378

== ENCOUNTER → 2020-10-26 | Outpatient (CLI) | payer OTHER ==
[~2020-10-26] MED LIST: ACET325T9 PO; ALBU2.5V8 NEB; CARV3.1210 PO; DOCU-153 PO; FURO-68 PO; INSU100V35 SQ; INSU100V8 SQ; LOSA25TA54 PO; MAGN400T5 PO; NITR0.4T24 SL; SPIR25TA PO
--- NOTE | 2020-10-26 15:28 | CARD ---
MR#: [id number] Date of Study: 10/26/2020 Ordering Physician: YAMILET AGEE, Referring Physician: YAMILET AGEE Tech: Jaz Mortensen [facility] APPROVED REPORT EXAM: Two-dimensional and M-mode echocardiogram with Doppler and color Doppler. Other Information Quality : GoodHR: 94bpm Rhythm : NSR INDICATION Cardiomyopathy 2D DIMENSIONS RVDd4.6 (2.9-3.5cm)Left Atrium(2D)4.6 (1.6-4.0cm) IVSd1.0 (0.7-1.1cm)Aortic Root(2D)3.9 (2.0-3.7cm) LVDd6.2 (3.9-5.9cm)LVOT Diameter2.1 (1.8-2.4cm) PWd1.0 (0.7-1.1cm)LVDs5.5 (2.5-4.0cm) FS (%) 11.5 %SV47.7 ml LVEF(%)24.4 (>50%) Aortic Valve AoV Peak Raji.83.7cm/sAoV VTI14.9cm AO Peak GR.2.8mmHgLVOT Peak Raji.50.1cm/s AO Mean GR.2mmHgAVA (VMAX)2.10cm2 Mitral Valve MV E Koqdacuy35.9cm/sMV DECEL [id number] MV A Mpnqgohz76.4cm/sE/A Ratio2.8 Tricuspid Valve TR P. Icelueuv396ti/sTR Peak Gr.33mmHg LEFT VENTRICLE The Left Ventricle is moderately dilated. There is normal left ventricular wall thickness. The left v entricular systolic function is severely impaired. Estimated ejection fraction 10-15%. There is elly re global hypokinesis of the left ventricle. RIGHT VENTRICLE The right ventricle is mildly to moderately dilated. There is normal right ventricular wall thickness . Systolic function is moderately to severely reduced. ATRIA The left atrium is moderately dilated. The right atrium size is normal. The interatrial septum is int act with no evidence for an atrial septal defect or patent foramen ovale as noted on 2-D or Doppler i maging. AORTIC VALVE The aortic valve is normal in structure and function. Doppler and Color Flow revealed no significant aortic regurgitation. There is no significant aortic valvular stenosis. MITRAL VALVE The mitral valve is normal in structure and function. There is no evidence of mitral valve prolapse. There is no mitral valve stenosis. Doppler and Color-flow revealed mild mitral regurgitation. TRICUSPID VALVE The tricuspid valve is normal in structure and function. Doppler and Color Flow revealed trace to mil d tricuspid regurgitation. Estimated PAP 40 mmHg. There is no tricuspid valve stenosis. PULMONIC VALVE The pulmonary valve is normal in structure and function. Doppler and Color Flow revealed mild pulmoni c valvular regurgitation. GREAT VESSELS The aortic root is mildly to moderately enlarged. The IVC is dilated and collapses >50% with inspirat ion. PERICARDIAL EFFUSION There is no evidence of significant pericardial effusion. Critical Notification Critical Value: No <Conclusion> The left ventricular systolic function is severely impaired. Estimated ejection fraction 10-15%. Mild mitral regurgitation. Trace to mild tricuspid regurgitation. Estimated PAP 40 mmHg. There is no evidence of significant pericardial effusion. Signed by : Yamilet Agee, Electronically Approved : 10/26/2020 15:27:29
== END ==
LOC: ECHO 13:08
PROVIDERS: ATTEND Internal Medicine Cardiovascular Disease
DX: I08.8 Other rheumatic multiple valve diseases (principal); I50.22 Chronic systolic (congestive) heart failure
CPT/HCPCS: 93306

== ENCOUNTER → 2020-11-09 | Outpatient (CLI) | payer OTHER ==
[~2020-11-09] MED LIST changes: +INSU100I32 SQ; +METF500T16 PO; +SACU1TAB7 PO
== END ==
LOC: LAB 13:05
PROVIDERS: ATTEND Internal Medicine Cardiovascular Disease
DX: Z01.812 Encounter for preprocedural laboratory examination (principal); I42.8 Other cardiomyopathies; Z20.822 Contact with and (suspected) exposure to COVID-19
CPT/HCPCS: U0003

== ENCOUNTER 2020-11-14 08:31 | Observation (INO) | payer OTHER ==
[~2020-11-14] VITALS: Ht 195.6 cm; Wt 112.0 kg
[2020-11-14] VITALS (11 sets, daily range): BP systolic 88–120; BP diastolic 49–81
[~2020-11-14 08:31] MED LIST changes: +HYDROmorphone 2 MG/ML VIAL IVP PRN; -INSU100I32 SQ; +IV RINGERS,LACTATED 1000ML 1,000 ML IV SCH; -METF500T16 PO; +MORPHINE SULFATE 2 MG/ML VIAL. IVP PRN; +PROCHLORPERAZINE 10 MG/2 ML VIAL. IVP PRN; -SACU1TAB7 PO; +fentaNYL PF VIAL 100 MCG/2 ML VIAL IVP PRN
[2020-11-14] MEDS ORDERED: BACITRACIN 50,000 UNIT in IV NORMAL SALINE 250ML 250 ML IRR ONE (08:45)
--- NOTE | 2020-11-14 08:56 | EKG ---
[facility] [address] [place] [address] Test Date: 2020-11-14 Test Time: 08:54:56 Pat Name: EVONNE TOWNSEND Department: Room: Gender: [employer]: PAM : 1970 Requested By: YAMILET AGEE Order Number: [id number] Reading MD: Measurements Intervals [place] Rate: 85 P: 53 KS: 204 QRS: 84 QRSD: 90 T: 62 QT: 374 QTc: 445 Interpretive Statements SINUS RHYTHM LEFT ATRIAL ABNORMALITY LOW LIMB LEAD VOLTAGE ABNORMAL ECG RI6.02 No previous ECG available for comparison
[2020-11-14] MEDS ORDERED: SACU1TAB7 PO (09:02)
[2020-11-14] MEDS ORDERED: METF500T16 PO (09:02)
[2020-11-14 09:12] LABS: CREATININE 1.5 mg/dL (0.7-1.3); GFR 59.9; POTASSIUM 4.4 mmol/L (3.5-5.1)
[2020-11-14 09:14] LABS: HEMATOCRIT 47.1 % (39.0-53.0); HEMOGLOBIN 15.5 g/dL (13.0-17.5); RED BLOOD COUNT 5.17 x10^6/uL (4.30-5.70); RED CELL DISTRIBUTION WIDTH 14.3 % (11.5-14.5); WHITE BLOOD COUNT 5.3 x10^3/uL (4.0-11.0)
[2020-11-14] MEDS ORDERED: LIDOCAINE 2%/EPI 1:100,000 20 ML VIAL. ONE (09:19)
[2020-11-14 09:21] LABS: PROTHROMBIN TIME PATIENT 13.8 SEC (11.7-14.0)
[2020-11-14] MEDS ORDERED: MIDAZOLAM HCL/PF 2 MG/2 ML VIAL. ONE (09:28)
[2020-11-14] MEDS ORDERED: fentaNYL PF VIAL 100 MCG/2 ML VIAL ONE (09:28)
[2020-11-14] MEDS ORDERED: LIDOCAINE 2% Multi-Dose 20 ML VIAL. IJ ONE (09:45)
[2020-11-14] MEDS ORDERED: PROPOFOL 10 MG/ML (20ML) VIAL. IV ONE (09:55)
[2020-11-14] MEDS ORDERED: PHENYLEPHRINE in 0.9% NACL PF 1 MG/10 ML SYRINGE. IV ONE (10:00)
[2020-11-14] MEDS ORDERED: INSULIN LISPRO 100 UNIT/ML 3ML VIAL for OP,RR ONLY. SQ PRN (11:00)
--- NOTE | 2020-11-14 11:02 | CARD ---
MR#: [id number] Date of Study: 11/14/2020 Ordering Physician: NEFTALI MENDOZA, Referring Physician: NEFTALI MENDOZA, Tech: Remington Lanier, RT(R)() APPROVED REPORT EXAM Implantation of Biotronik automated implantable cardioverter defibrillator Defibrillation thresholds measurement at the time of implantation NO MODERATE SEDATION GIVEN FLUORO TIME: 2.1 MIN DOSE: 17.2 GYCM2 INDICATIONS Primary prevention of sudden cardiac in a patient with severe nonischemic cardiomyopathy and ch ronic systolic heart failure with LVEF 10 to 15% PROCEDURE After explaining the risks, benefits, and alternative options, informed consent was obtained from the patient. The patient was brought to the cardiac catheterization lab and the left chest and shoulder were prepp ed and draped in the usual fashion. Specimen(s) Removed: No Estimated Blood loss: 15 cc's. 40 cc of 2% lidocaine was infiltrated into the skin and subcutaneous tissues for local anesthesia. A n incision was made over the left infraclavicular fossa and using blunt dissection and cautery, a poc ket was created. Venous access was obtained in the left subclavian vein and 8 [place] sheath was inse rted. A Biotronik bipolar active fixation right ventricular lead with atrial dipole, model Plexa ProMRI S D X 65, serial #[id number] was advanced under fluoroscopic guidance and the tip was positioned in the rig ht ventricular apex. The lead was secured into place and was attached to a Biotronik AICD generator, model Acticor 7 VR-T DX, serial #[id number]. This was placed in the pocket that was subsequently clos ed in 3 layers. Hemostasis was secured. Ventricular fibrillation was then induced to check the defibrillation threshold. Patient successfull y converted to sinus rhythm with a 25 J shock therapy. The right ventricular lead showed a sensing a mplitude of 20 mV, impedance of 650 ohms and a threshold of 0.4 V. The atrial dipole showed sensing amplitude of 4 mV. Patient tolerated the procedure well. There were no immediate complications. CONCLUSION Successful implantation of Biotronik automated implantable cardioverter defibrillator for primary pre vention of sudden cardiac in a patient with severe nonischemic cardiomyopathy/chronic systolic heart failure with LVEF 10 to 15%. Defibrillation thresholds were measured successfully at the time of implantation. Signed by : Neftali Mendoza, Electronically Approved : 11/14/2020 11:01:49
--- NOTE | 2020-11-14 11:47 | RAD ---
XR CHEST 1V History: Pacemaker placement Comparison: 06/30/2020 Technique: Portable AP chest radiograph. Findings: Tubes/lines: New left chest single lead pacemaker-defibrillator with lead tip projecting at the right ventricle. Lungs: Clear. Pleural Spaces: No effusion or pneumothorax. Cardiac Silhouette: Stable mild prominent heart size. Pulmonary Vasculature: Mild cephalization. Osseous Structures and Other: Unremarkable. Impression: 1. New cardiac pacemaker-defibrillator without evidence of complication. Electronically signed by: Tommy Antony MD (11/14/2020 11:44 AM) [facility]
[2020-11-14] MEDS ORDERED: ACETAMINOPHEN 325 MG TABLET. PO PRN (12:45)
[2020-11-14] MEDS ORDERED: ALBUTEROL SULFATE 2.5 MG/3 ML NEBU. NEB PRN (12:45)
[2020-11-14] MEDS ORDERED: DOCUSATE SODIUM 100 MG CAPSULE. PO PRN (12:45)
[2020-11-14] MEDS ORDERED: NITROGLYCERIN SUBLINGUAL 0.4 MG BOTTLE OF 25. SL PRN (12:45)
[2020-11-14] MEDS ORDERED: INSU100I32 SQ (12:51)
[2020-11-14] MEDS: INSULIN GLARGINE SYRINGE. SQ SCH (14:25)
[2020-11-14] MEDS: HYDROcodone/APAP 5/325MG 1 TAB TABLET PO PRN ×2 (14:47→20:28)
[2020-11-14] MEDS: CARVEDILOL 3.125 MG TABLET. PO SCH (16:27)
[2020-11-14] MEDS: SACUBITRIL/VALSARTAN 49/51MG TABLET. PO SCH (20:27)
[2020-11-14] MEDS ORDERED: DEXTROSE 50% 25 GM / 50ML DISP.SYRIN. IV PRN (21:15)
[2020-11-15] MEDS: HYDROcodone/APAP 5/325MG 1 TAB TABLET PO PRN ×2 (02:52→08:48)
[2020-11-15 03:30] VITALS: BP 109/65
[2020-11-15 07:00] VITALS: BP 120/83
[2020-11-15] MEDS: SACUBITRIL/VALSARTAN 49/51MG TABLET. PO SCH (08:43)
[2020-11-15] MEDS: CARVEDILOL 3.125 MG TABLET. PO SCH (08:43)
[2020-11-15] MEDS ORDERED: SPIRONOLACTONE 25 MG TABLET PO SCH (09:00)
[2020-11-15] MEDS ORDERED: FUROSEMIDE 40 MG TABLET. PO SCH (09:00)
--- NOTE | 2020-11-15 10:16 | RAD ---
XR CHEST 2V History: Reason: 1 day post pacemaker implantation / Spl. Instructions: / History: Comparison: November 14, 2020 Findings: Stable left-sided pacemaker/ICD. No pneumothorax. No consolidation or pleural effusion. Unchanged hea rt size. Impression: 1. Stable left-sided pacemaker/ICD. No pneumothorax. Electronically signed by: Matt Bray DO (11/15/2020 10:13 AM) [id number]
[2020-11-15 11:00] VITALS: BP 103/71
--- NOTE | 2020-11-15 11:21 | PDOC3 ---
MARY PRECIADO EXTERIOR WORK HELPER 11/15/20 1121: Discharge Summary Visit Information Date of Admission: Nov 14, 2020 Date of Discharge: Nov 15, 2020 Admitting Diagnosis: NICM, Chronic systolic CHF Final Diagnosis NICM, Chronic systolic CHF, S/P AICD placement Brief Hospital Course Allergies Allergies Coded Allergies Type Severity Reaction Last Updated Verified No Known Drug Allergies 06/30/20 No Vital Signs Vital Signs Date Time Temp Pulse Resp B/P (MAP) Pulse Ox O2 Delivery O2 Flow Rate FiO2 11/15/20 08:48 20 96 Room Air 2.0 11/15/20 08:43 86 109/65 11/15/20 07:00 98.2 98.2 Lab Results Laboratory Tests Test 11/14/20 08:55 11/14/20 10:55 11/14/20 12:25 11/14/20 16:17 White Blood Count 5.3 x10^3/uL (4.0-11.0) Red Blood Count 5.17 x10^6/uL (4.30-5.70) Hemoglobin 15.5 g/dL (13.0-17.5) Hematocrit 47.1 % (39.0-53.0) Mean Corpuscular Volume 91 fL (79-100) Mean Corpuscular Hemoglobin 30 pg (25-35) Mean Corpuscular Hemoglobin Concent 33 g/dL (31-37) Red Cell Distribution Width 14.3 % (11.5-14.5) Platelet Count 223 x10^3/uL (140-400) Prothrombin Time 13.8 SEC (11.7-14.0) Prothromb Time International Ratio 1.1 (0.8-1.1) Sodium Level 136 mmol/L (136-145) Potassium Level 4.4 mmol/L (3.5-5.1) Chloride Level 101 mmol/L (98-107) Carbon Dioxide Level 24 mmol/L (21-32) Anion Gap 11 (6-14) Blood Urea Nitrogen 35 mg/dL (8-26) Creatinine 1.5 mg/dL (0.7-1.3) Estimated GFR (Cockcroft-Gault) 59.9 Glucose Level 162 mg/dL (70-99) Calcium Level 9.0 mg/dL (8.5-10.1) Glucose (Fingerstick) 231 mg/dL (70-99) 151 mg/dL (70-99) 125 mg/dL (70-99) Test 11/14/20 21:01 11/15/20 08:18 Glucose (Fingerstick) 181 mg/dL (70-99) 216 mg/dL (70-99) Laboratory Tests Test 11/14/20 12:25 11/14/20 16:17 11/14/20 21:01 11/15/20 08:18 Glucose (Fingerstick) 151 mg/dL (70-99) 125 mg/dL (70-99) 181 mg/dL (70-99) 216 mg/dL (70-99) Brief Hospital Course Mr. Moralez is a 50 year old male admitted for planned AICD placement with underlying NICM with EF at 10-15%. He then had a successful implantation of Biotronik automated implantable cardioverter defibrillator for primary preven tion of sudden cardiac in a patient with severe nonischemic cardiomyopathy/chronic systolic heart failure defibrillation thresholds were measured successfully at the time of implantation.Repeat interrogation revealed stable impedances and no immediate complications. He tolerated procedure well. Left chest incision is D/I with steristrips. ADAM. No erythema or swelling, neurovascular status to LUE intact. sling in place. Denies any CP or SOA. AOx3, LSCTA. No arrhythmias overnight. Ambulatory without difficulty. Clinically his CHF is compensated. He is to resume his routine HF home medications. Post AICD instructions given. BMP will be repeated in 1-2 weeks prior to his wound check in 2 weeks. Discharge Information Condition at Discharge: Stable Follow Up: Weeks (2) Disposition/Orders: D/C to Home Scheduled Carvedilol (Carvedilol ) 3.125 Mg Tablet, 3.125 MG PO BIDWMEALS for HEART FAILURE for 30 Days, #60 Prescribed by: SAUMYA BLANCHARD MD on 07/02/201219 Last Taken: Unknown Dose on 11/13/20 Last Action: Continued on 11/14/20 1246 by RUSSELL ÁLVAREZ APRN Furosemide (Lasix) 40 Mg Tablet, 1 TAB PO DAILY for CHF for 30 Days, #30 Ref 0 Prescribed by: SAUMYA BLANCHARD MD on 07/02/200 Last Taken: 20mg on 11/13/20 Last Action: Continued on 11/14/201245 by RUSSELL ÁLVAREZ APRN Insulin Glargine,Hum.rec.anlog (Basaglar Kwikpen U-100) 100 Unit/1 Ml Insuln.pen, 15 UNIT SQ NOON for DIABETES, (Reported) Entered as Reported by: Shady Cabrales on 11/14/20 1251 Last Action: Converted on 11/14/201253 by Shady Cabrales Metformin Hcl (Metformin Hcl) 500 Mg Tablet, 500 MG PO BIDWMEALS for ANTI- DIABETIC, Ref 0 (Reported) Entered as Reported by: GIA CRUZ on 11/14/20901 Last Taken: Unknown Dose on 11/13/20 Last Action: New Order on 11/14/20901 by GIA CRUZ Sacubitril/Valsartan (Entresto 49 mg-51 mg Tablet) 1 Each Tablet, 1 EACH PO BID for heart failure, (Reported) Entered as Reported by: GIA CRUZ on 11/14/20901 Last Taken: Unknown Dose on 11/13/20 Last Action: Continued on 11/14/201245 by RUSSELL ÁLVAREZ APRN Spironolactone (Aldactone) 25 Mg Tablet, 25 MG PO DAILY for HEART FAILURE for 30 Days, #30 Prescribed by: SAUMYA BLANCHARD MD on 07/02/201219 Last Taken: Unknown Dose on 11/13/20 Last Action: Continued on 11/14/201245 by RUSSELL ÁLVAREZ APRN Scheduled PRN Acetaminophen (Tylenol) 325 Mg Tablet, 650 MG PO PRN Q4HRS PRN for TEMP OVER 100.4F OR MILD PAIN for 30 Days, #60 Prescribed by: SAUMYA BLANCHARD MD on 07/02/201219 Last Taken: Unknown Dose on Unknown Date & Time Last Action: Continued on 11/14/201245 by RUSSELL ÁLVAREZ APRN Albuterol Sulfate (Proair Hfa) 8.5 Gm Hfa.aer.ad, 2.5 MG NEB PRN Q4HRS PRN for SHORTNESS OF BREATH for 30 Days, #2 Prescribed by: SAUMYA BLANCHARD MD on 07/02/201219 Last Taken: Unknown Dose on 11/13/20 Last Action: Continued on 11/14/20 1246 by RUSSELL ÁLVAREZ APRN Docusate Sodium (Dok) 100 Mg Capsule, 100 MG PO PRN BID PRN for HARD STOOLS for 30 Days, #30 Prescribed by: SAUMYA BLANCHARD MD on 07/02/20 1220 Last Taken: Unknown Dose on Unknown Date & Time Last Action: Continued on 11/14/20 1246 by RUSSELL ÁLVAREZ APRN Nitroglycerin (Nitrostat) 0.4 Mg Tab.subl, 0.4 MG SL PRN Q5MIN PRN for CHEST PAIN for 30 Days, #100 Prescribed by: SAUMYA BLANCHARD MD on 07/02/20 1220 Last Taken: UNKNOWN on Unknown Date & Time Last Action: Continued on 11/14/20 1246 by RUSSELL ÁLVAREZ APRN Patient Instructions Patient Instructions Must know & what to expect after device implant: 1. Your surgical dressing should be removed prior to discharge from the hospital, but allow the steri- strips to fall off naturally. 2. Activity restrictions: DO NOT raise arm above shoulder level, lift any thing heavier than a gallon of milk, and no push or pull motions such as vacuuming/lawn mowing, no swinging motions (golf), etc for 4 weeks. 3. It is OK to use a cell phone or other electronic devices just be sure you do not store it in a breast pocket on the side where the device was placed. 4. Device will be interrogated prior to your discharge from the hospital and then every 3 months for defibrillators and every 6 months for pacemakers. You may be asked to have your device checked remotely from home as well, but this will depend on your particular physicians preference. 5. You may remove the arm immobilizer the day after device placement. Wear the arm immobilizer/splint at night (during sleep times) for 2 week to prevent unintended arm movement that can cause lead dislodgement. 6. Do not drive for one week as the task of driving may lead to unintended arm motion that may cause lead dislodgement. The seatbelt will also rub against the incision site & cause irritation. 7. It is our recommendation that you utilize Tylenol at home for pain control. You need to call our office if you are having uncontrollable pain at the incision site. 8. Keep your incision clean and dry. It is OK to shower. DO NOT submerge in bath, pool, or hot tub, until cleared by your doctor, as this could lead to increase risk of infection.. It is OK to use regular soap just do not scrub the incision site. Water spray from shower should not directly hit the incision. Be sure to blot dry not rub. 9. Inspect your incision daily. If you notice any increased redness, swelling, or drainage, or if you start running a fever, call the office immediately. The number is [phone]. 10. For women, if you need to protect against irritation from the bra straps, you can place a piece of gauze over the incision site for cushion. Please be sure to tape it loosely to allow air to the site & remove the gauze when you remove the bra. 11. Be sure to carry your device identification information card in your wallet/purse at all times. 12. It is OK to go through security at the airport with your device, but be sure to let the TSA know prior to proceeding as the security settings change depending on varying factors. Please do whatever is requested by security at that time. 13. Some of the newer devices may be MRI compatible but, currently, the use of these devices is not widespread, so you likely will not be able to have an MRI. Please clarify this with your physician. Special instructions for defibrillator patients: If your device recognizes a rhythm that requires treatment with a shock, you will most likely feel the shock. This is usually not a subtle feeling and it is uncomfortable. Please follow these steps if you receive a shock: Call the office if you receive one shock. Go to the emergency room if you receive two consecutive shocks- please have s omeone drive you & call 911 if nobody is available- DO NOT drive yourself. Call 911 if you receive more than 2 consecutive shocks. If at any time, you feel lightheaded or dizzy/faint, stop what you are doing & lie down immediately. If you are driving, get to the side of the road quickly, turn your car off & call 911 on your cell phone. DO NOT continue to drive as this may cause an accident that seriously injures yourself &/or others. Call the office at [phone] for any questions or concerns. Justicifation of Admission Dx: Justifications for Admission: Justification of Admission Dx: N/A CHF: Hemodynamic Instability Angina: Unstable Variant YAMILET AGEE MD 11/15/201923: Discharge Summary Brief Hospital Course Brief Hospital Course Patient seen and examined. Agree with DESIGN ENGINEERING INTERN's assessment and plan. Patient underwent successful AICD implantation for severe nonischemic cardiomyopathy. Chronic systolic heart failure clinically well compensated. Chest x-ray did not show any pneumothorax. Device interrogation showed normal function and incision looked good. Okay for discharge to follow-up with our office as scheduled. Discharge Information Scheduled Carvedilol (Carvedilol ) 3.125 Mg Tablet, 3.125 MG PO BIDWMEALS for HEART FAILURE for 30 Days, #60 Prescribed by: SAUMYA BLANCHARD MD on 07/02/201219 Last Taken: Unknown Dose on 11/13/20 Last Action: Continued on 11/14/206 by RUSSELL ÁLVAREZ APRN Furosemide (Lasix) 40 Mg Tablet, 1 TAB PO DAILY for CHF for 30 Days, #30 Ref 0 Prescribed by: SAUMYA BLANCHARD MD on 07/02/201219 Last Taken: 20mg on 11/13/20 Last Action: Continued on 11/14/206 by RUSSELL ÁLVAREZ APRN Insulin Glargine,Hum.rec.anlog (Basaglar Kwikpen U-100) 100 Unit/1 Ml Insuln.pen, 15 UNIT SQ NOON for DIABETES, (Reported) Entered as Reported by: Shady Cabrales on 11/14/20 1251 Last Action: Converted on 11/14/204 by Shady Cabrales Metformin Hcl (Metformin Hcl) 500 Mg Tablet, 500 MG PO BIDWMEALS for ANTI- DIABETIC, Ref 0 (Reported) Entered as Reported by: GIA CRUZ on 11/14/20901 Last Taken: Unknown Dose on 11/13/20 Last Action: New Order on 11/14/20901 by GIA CRUZ Sacubitril/Valsartan (Entresto 49 mg-51 mg Tablet) 1 Each Tablet, 1 EACH PO BID for heart failure, (Reported) Entered as Reported by: GIA CRUZ on 11/14/20901 Last Taken: Unknown Dose on 11/13/20 Last Action: Continued on 11/14/201245 by RUSSELL ÁLVAREZ APRN Spironolactone (Aldactone) 25 Mg Tablet, 25 MG PO DAILY for HEART FAILURE for 30 Days, #30 Prescribed by: SAUMYA BLANCHARD MD on 07/02/201219 Last Taken: Unknown Dose on 11/13/20 Last Action: Continued on 11/14/201245 by RUSSELL ÁLVAREZ APRN Scheduled PRN Acetaminophen (Tylenol) 325 Mg Tablet, 650 MG PO PRN Q4HRS PRN for TEMP OVER 100.4F OR MILD PAIN for 30 Days, #60 Prescribed by: SAUMYA BLANCHARD MD on 07/02/201219 Last Taken: Unknown Dose on Unknown Date & Time Last Action: Continued on 11/14/201245 by RUSSELL ÁLVAREZ APRN Albuterol Sulfate (Proair Hfa) 8.5 Gm Hfa.aer.ad, 2.5 MG NEB PRN Q4HRS PRN for S HORTNESS OF BREATH for 30 Days, #2 Prescribed by: SAUMYA BLANCHARD MD on 07/02/201219 Last Taken: Unknown Dose on 11/13/20 Last Action: Continued on 11/14/201245 by RUSSELL ÁLVAREZ APRN Docusate Sodium (Dok) 100 Mg Capsule, 100 MG PO PRN BID PRN for HARD STOOLS for 30 Days, #30 Prescribed by: SAUMYA BLANCHARD MD on 07/02/201219 Last Taken: Unknown Dose on Unknown Date & Time Last Action: Continued on 11/14/201245 by RUSSELL ÁLVAREZ APRN Nitroglycerin (Nitrostat) 0.4 Mg Tab.subl, 0.4 MG SL PRN Q5MIN PRN for CHEST PAIN for 30 Days, #100 Prescribed by: SAUMYA BLANCHARD MD on 07/02/201219 Last Taken: UNKNOWN on Unknown Date & Time Last Action: Continued on 11/14/201245 by ROSALINE RUFFIN JHUNNE M APRN Nov 15, 2020 11:21 YAMILET AGEE MD Nov 15, 2020 19:24
[2020-11-15] MEDS: INSULIN GLARGINE SYRINGE. SQ SCH (12:22)
--- NOTE | 2020-11-15 12:54 | NUR ---
SS following for discharge planning. SS reviewed pt chart and discussed with pt RN. Pt is from home and is currently on room air. Pt had defibrillator placed on 11/14/2020. Anticipate discharge to home today. SS will continue to follow for discharge planning.
--- NOTE | 2020-11-15 13:55 | NUR ---
PATIENT DISCHARGED TO HOME. DISCHARGE INSTRUCTIONS GIVEN TO PATIENT. PIV AND HEART MONITOR REMOVED. ESCORTED PATIENT OFF UNIT INTO A PRIVATE VEHICLE.
== END 2020-11-15 13:55 | disposition home or self-care (01) ==
LOC: CCL 08:31 → 2 NORTH 09:40 → INTOOBSV 09:40
PROVIDERS: ADMIT Internal Medicine Cardiovascular Disease; ATTEND Internal Medicine Cardiovascular Disease
DX: I42.8 Other cardiomyopathies (principal); I11.0 Hypertensive heart disease with heart failure; I50.22 Chronic systolic (congestive) heart failure; E11.9 Type 2 diabetes mellitus without complications; Z79.84 Long term (current) use of oral hypoglycemic drugs; Z79.899 Other long term (current) drug therapy; Z95.810 Presence of automatic (implantable) cardiac defibrillator
CPT/HCPCS: 33249; 36415; 71045; 71046; 80048; 82962; 85027; 85610; 93005; 93641; 96365; 96366; 96372; C1721; G0378; G0379; J0690; J1815; J2370; J2704; J7050; J7030